=== PATIENT | female | born 1960 | race Caucasian/White ===

== ENCOUNTER → 2017-08-27 21:52 | Outpatient (CLI) | payer OTHER, SELFPAY ==
[2017-08-27 23:19] LABS: PTHIN 129.8 pg/mL (18.4-80.1); Vitamin D,25 Hydroxy 32.7 ng/mL (29.95-100.01)
[2017-08-27 23:22] LABS: ALB/GLOB Ratio 0.9 RATIO (0.9-2.4); AST(SGOT) 17 U/L (15-37); Alanine Aminotransfer ALT/SGPT 24 U/L (13-56); Albumin, Serum 3.6 g/dL (3.2-5.0); Alkaline Phosphatase 94 U/L (45-117); Anion Gap 11 (5-15); BUN 18 mg/dL (7-18); BUN/Creat Ratio 17.5 RATIO (10-20); Calcium,Total 8.5 mg/dL (8.5-10.1); Chloride 105 mmol/L (98-107); Creatinine, Serum 1.03 mg/dL (0.55-1.02); EST Glomerular Filtration Rate 59 mL/min (>60); Est Glom Filt Rate - Afr Amer 72 mL/min (>60); Free T3 3.5 pg/mL (2.18-3.98); Globulin 4.1 g/dL (2.2-4.2); Glucose 94 mg/dL (74-106); Protein, Total 7.7 g/dL (6.4-8.2); Sodium Level 142 mmol/L (136-145); T4 Free Direct 1.42 ng/dL (0.76-1.46); Thyroid Stim Hormone (TSH) 0.01 uIU/mL (0.358-3.74)
== END ==
PROVIDERS: Family Provider Family Medicine; PCP Family Medicine; Visit Provider Internal Medicine Endocrinology, Diabetes & Metabolism
DX: E03.8 Other specified hypothyroidism (principal); E21.1 Secondary hyperparathyroidism, not elsewhere classified; E55.9 Vitamin D deficiency, unspecified
CPT/HCPCS: 36415; 80053; 82306; 83970; 84439; 84443; 84481

== ENCOUNTER → 2017-09-22 17:57 | Outpatient (CLI) | payer OTHER, SELFPAY ==
[2017-09-22 19:06] LABS: Progesterone Level 0.31 ng/mL (See Comment)
[2017-09-22 19:07] LABS: Estradiol 12.8 pg/mL; T4 Free Direct 1.45 ng/dL (0.76-1.46); Thyroid Stim Hormone (TSH) 0.02 uIU/mL (0.358-3.74)
[2017-09-24 11:40] LABS: DHEA Sulfate 157.6 ug/dL (29.4-220.5)
== END ==
PROVIDERS: Family Provider Family Medicine; PCP Family Medicine; Visit Provider Specialist
DX: E03.8 Other specified hypothyroidism (principal); N95.1 Menopausal and female climacteric states; R53.81 Other malaise
CPT/HCPCS: 36415; 82627; 82670; 84144; 84403; 84439; 84443; 84481; 82626

== ENCOUNTER → 2019-08-30 08:01 | Outpatient (CLI) | payer OTHER, SELFPAY ==
[2019-05-10 08:47] VITALS: BMI 31.8
--- NOTE | 2019-08-30 08:05 | RAD_ITS ---
STUDY: X-RAY - ESOPHAGUS (BARIUM SWALLOW) WITH FLUOROSCOPY REASON FOR EXAM: Female, 59 years old. Feels like food gets stuck in throat -- x years, happens several times a month TECHNIQUE: 18 view(s) of the esophagus were obtained following swallowing of barium. FLUOROSCOPY TIME (if supplied): (0:32) minutes/seconds COMPARISON: None. FINDINGS: There is no demonstrated esophageal foreign body. Mild circumferential narrowing in the distal esophagus at the level of the gastroesophageal junction. The patient ingested a 12 mm tablet of barium. The tablet is trapped at the gastroesophageal junction. Endoscopic correlation is recommended. Normal visualized aortic arch and descending thoracic aorta. Normal visualized pulmonary parenchyma. Normal visualized osseous structures of the thorax. RAD/Esophagus Single Contrast IMPRESSION: Mild degree of circumferential narrowing in the distal esophagus at the gastroesophageal junction with trapping of the 12 mm tablet of barium. Endoscopic correlation is recommended. Electronically Signed: Heriberto Cox, at 9:21 EDT , Service support ,
== END ==
PROVIDERS: PCP Family Medicine; Referring Provider Otolaryngology; Visit Provider Otolaryngology
DX: R13.10 Dysphagia, unspecified (principal)
CPT/HCPCS: 74220

== ENCOUNTER → 2020-02-17 18:32 | Outpatient (CLI) | payer OTHER, SELFPAY ==
[2019-05-10 08:47] VITALS: BMI 31.8
--- NOTE | 2020-02-17 18:39 | US_ITS ---
STUDY: ULTRASOUND OF THE FEMALE PELVIS - COMPLETE REASON FOR EXAM: Female, 59 years old. LIGHT SPOTTING AND CRAMPS LMP: The patient is postmenopausal TECHNIQUE: Transabdominal and Transvaginal TECHNICAL QUALITY: Adequate. COMPARISON: None. FINDINGS: The uterus is anteverted and is in a midline position. The uterus measures 8.4 cm x 4.5 cm x 3.7 cm. Normal uterine cervix. The endometrium is thickened and measures 6.0 mm in thickness, and is hyperechoic. There is no demonstrated endometrial mass. 3 small uterine fibroids are seen. The largest measures 1.2 cm x 1.7 cm x 0.5 cm. I.U.D. - The patient does not have an I.U.D. The right ovary is non-visualized. The left ovary is non-visualized. There is no fluid in the cul-de-sac. The pre void volume of the bladder was 169 ml. Polycystic ovary disease: No. US/Pelvic (Non ) IMPRESSION: Thickening of the endometrium measuring 6 mm. 3. Small uterine fibroids. Electronically Signed: Heriberto Cox, at 12:38 EDT , Service support ,
--- NOTE | 2020-02-17 18:56 | US_ITS ---
STUDY: ULTRASOUND OF THE FEMALE PELVIS - COMPLETE REASON FOR EXAM: Female, 59 years old. LIGHT SPOTTING AND CRAMPS LMP: The patient is postmenopausal TECHNIQUE: Transabdominal and Transvaginal TECHNICAL QUALITY: Adequate. COMPARISON: None. FINDINGS: The uterus is anteverted and is in a midline position. The uterus measures 8.4 cm x 4.5 cm x 3.7 cm. Normal uterine cervix. The endometrium is thickened and measures 6.0 mm in thickness, and is hyperechoic. There is no demonstrated endometrial mass. 3 small uterine fibroids are seen. The largest measures 1.2 cm x 1.7 cm x 0.5 cm. I.U.D. - The patient does not have an I.U.D. The right ovary is non-visualized. The left ovary is non-visualized. There is no fluid in the cul-de-sac. The pre void volume of the bladder was 169 ml. Polycystic ovary disease: No. US/Transvaginal Non- IMPRESSION: Thickening of the endometrium measuring 6 mm. 3. Small uterine fibroids. Electronically Signed: Heriberto Cox, at 12:38 EDT , Service support ,
== END ==
PROVIDERS: PCP Family Medicine; Referring Provider Family Medicine; Visit Provider Family Medicine
DX: R10.2 Pelvic and perineal pain (principal)
CPT/HCPCS: 76830; 76856

== ENCOUNTER → 2020-03-08 07:13 | Outpatient (CLI) | payer OTHER, SELFPAY ==
[2019-05-10 08:47] VITALS: BMI 31.8
--- NOTE | 2020-03-07 17:15 | BI_ITS ---
MAMMOGRAPHY - BILATERAL SCREENING REASON FOR EXAM: Female, 59 years old. Routine annual screening examination. PERTINENT HISTORY: Aunt with breast cancer. TECHNIQUE: Digital bilateral breast jesse (3D mammographic acquisition) in the CC and MLO projections. 2-D mediolateral oblique (MLO) and craniocaudad (CC) views of both breasts were obtained. CAD: Full Field Digital Mammography with Computer Added Detection was performed. COMPARISON: Comparison is made with prior study dated 07/06/2016 and 06/08/2015. FINDINGS: Breast Composition: There are scattered areas of fibroglandular density. There are no dominant masses or suspicious calcifications. Stable asymmetry of the breast parenchyma in the outer lateral quadrant of the left breast. No other significant abnormalities are identified. There has been no significant change since the prior study. BI/SCREEN MAMM (CAD) W/JESSE BILAT IMPRESSION: Stable bilateral screening mammogram. Yearly follow-up mammogram recommended. (A) ASSESSMENT CATEGORY: BIRADS Category 2: Benign. A letter regarding these results will be sent to the patient by the facility within 30 days. Approximately 10% of breast cancers are not detected by mammography. A normal mammogram should not delay biopsy of a clinically suspicious abnormality. [id number] Electronically Signed: Heriberto Cox, at 8:33 EDT , Service support ,
== END ==
PROVIDERS: PCP Family Medicine; Referring Provider Family Medicine; Visit Provider Family Medicine
DX: Z12.31 Encounter for screening mammogram for malignant neoplasm of breast (principal)
CPT/HCPCS: 77063; 77067

== ENCOUNTER 2020-11-15 21:14 | Emergency (ER) | payer BC, SELFPAY ==
[2019-05-10 08:47] VITALS: BMI 31.8
[2020-11-15 21:15] VITALS: BP 129/79; PULSE 51; RESP 18; TEMP 35.1; O2SAT 100; BMI 27.9
--- NOTE | 2020-11-15 21:25 | EKG12_ITS ---
Test Reason : ABD PAIN Blood Pressure : / mmHG Vent. Rate : 051 BPM Atrial Rate : 051 BPM P-R Int : 156 ms QRS Dur : 074 ms QT Int : 440 ms P-R-T Axes : 036 042 044 degrees QTc Int : 405 ms Sinus bradycardia Otherwise normal ECG Confirmed by REGINE SMITH, CLARIBEL ([id number]), associate editor KEYSHAWN SHIN ([id number]) on 11/17/2020 8:39:25 AM Referred By: PEGGY Confirmed By:CLARIBEL WEINER MD
--- NOTE | 2020-11-15 21:26 | EX.ED.DYSGE1 ---
HPI History of Present Illness Chief Complaint: Abd Pain Narrative Narrative: Patient started having diffuse abdominal pain she tells me all around her abdomen and it through the back for about an hour prior to arrival upon arrival to the ED it had subsided. She had some nausea but this improved. She now tells me she has no abdominal pain she has no nausea she has no vomiting she had no diarrhea or constipation she is denying chest pain or shortness of breath. No fever or chills. She was sweaty when this episode happened. [facility] Medical History Goiter Thyroid disease Home Medications BIEST SC 05/10/19 [History Last Taken Unknown] IDDORAL IODINE 12.5 mg SUBLINGUAL DAILY 05/10/19 [History Last Taken Unknown] levothyroxine 100 mcg tablet 100 mcg PO DAILY #90 tab 05/10/19 [Rx Last Taken Unknown] jggvrulueoqc-Zg-pwwj-minerals tab PO .TWICE DAILY tab 05/10/19 [History Last Taken Unknown] progesterone micronized 100 mg capsule 100 mg PO ONCE cap 05/10/19 [History Last Taken Unknown] testosterone enanthate 50 mg/0.5 mL subcutaneous auto-injector 20 mg SC .COMPLEX ml 05/10/19 [History Last Taken Unknown] Allergy/AdvReac Type Severity Reaction Status Date / Time No Known Allergies Allergy Verified 11/15/20 21:16 Family History Mother Arthritis Father Cancer Other OSTEOPEROSIS Social History (Updated 05/11/19 @ 08:[address] Phu Le MD) Smoking Status: Never smoker alcohol intake: never substance use type: does not use what type of physical activity do you participate in: walking ROS ROS ED ROS Narrative Past medical history: Reviewed, includes hypothyroidism and other hormonal related disorders. Medications: Reviewed Social history: Noncontributory Review of systems: All systems negative except as indicated General: No fever Eyes: No visual changes ENT: No upper airway congestion, normal voice Neck: No neck pain Cardiovascular: No chest pain Respiratory: No shortness of breath or cough Gastrointestinal: Abdominal pain as in HPI Genitourinary: No dysuria Musculoskeletal: Denies myalgias no difficulty with ambulation Skin: No rash Neurological: No memory loss, confusion or any focal weakness Psych: No recent behavioral changes Hematologic: No easy bleeding or easy bruising EXAM Physical Exam Narrative Exam Narrative: Physical exam General: Well nourished, Well developed, No Acute Distress Head: Normocephalic, Atraumatic Eyes: Conjunctiva not pale ENT: Moist mucous membranes Neck: Supple, Nontender, No lymphadenopathy Cardiovascular: Regular rate, Regular rhythm Respiratory: No distress, CTA bilaterally Abdomen: Soft, Nontender, Nondistended Back: Nontender, Normal Inspection. Negative for: CVA tenderness Extremities: Nontender, No edema Skin: Normal color, No rash Neurological: Alert, Normal Strength, Normal Sensation Psychological: Normal affect Const Vital Signs: 11/15/20 21:15 Temperature 95.2 F L Temperature Source Temporal Pulse Rate 51 L Respiratory Rate 18 Blood Pressure 129/79 H Blood Pressure Mean 95 Pulse Ox 100 Oxygen Delivery Method Room Air MDM MDM MDM Narrative Medical decision making narrative: Patient has a normal work-up she appears well she is completely asymptomatic. She will be discharged in stable condition Lab Data Labs: Laboratory Results - last 24 hr 11/15/20 11/15/20 21:20 21:20 WBC 10.2 RBC 4.54 Hgb 13.8 Hct 41.6 MCV 91.6 MCH 30.4 MCHC 33.2 RDW Std Deviation 43.4 RDW Coeff of Shilpi 12.9 Plt Count 268 MPV 10.4 Immature Gran % (Auto) 0.300 Neut % (Auto) 51.7 Lymph % (Auto) 33.4 Isabella % (Auto) 12.3 H Eos % (Auto) 1.9 Baso % (Auto) 0.4 Absolute Neuts (auto) 5.3 Absolute Lymphs (auto) 3.40 Nucleated RBC % 0 Sodium 139 Potassium 3.7 Chloride 103 Carbon Dioxide 27.0 Anion Gap 9 BUN 23 H Creatinine 1.11 H Estim Creat Clear Calc 41.69 Est GFR (MDRD) Af Amer 65 Est GFR (MDRD) Non-Af 54 L BUN/Creatinine Ratio 20.7 H Glucose 111 H Calcium 9.2 Total Bilirubin 0.20 AST 54 H ALT 32 Alkaline Phosphatase 85 Troponin I < 0.015 Total Protein 7.7 Albumin 3.8 Globulin 3.9 Albumin/Globulin Ratio 1.0 Lipase 173 Discharge Plan Triage Chief Complaint: Abd Pain ED Provider: Austin Farris Dx/Rx/DC Orders Prescriptions: No Action progesterone micronized 100 mg capsule 100 mg PO ONCE RF: 0 testosterone enanthate 50 mg/0.5 mL auto-injector 20 mg SC .COMPLEX RF: 0 BIEST auto-injector SC RF: 0 IDDORAL IODINE capsule 12.5 mg SUBLINGUAL DAILY RF: 0 Multiple Vitamin, Womens Tablet PO .TWICE DAILY RF: 0 levothyroxine 100 mcg tablet 100 mcg PO DAILY Qty: 90 RF: 3 Primary Care Provider: Richelle Escalante
--- NOTE | 2020-11-15 21:28 | ED.RN ---
NO OLD EKGS IN MUSE
[2020-11-15 21:40] LABS: Absolute Neutrophil Count 5.3 X10^3/uL (2.0-7.7); Basophil# 0.04 X10^3/uL; Basophil% 0.4 % (0-1); Eosinophil# 0.19 X10^3/uL; Eosinophils% 1.9 % (0-5); Hematocrit 41.6 % (37-47); Hemoglobin 13.8 g/dL (12.0-15.0); Lymphocyte % 33.4 % (19-41); Mean Corp Hgb Conc 33.2 g/dL (32-36); Mean Corpuscular Hgb 30.4 pg (27.0-32.0); Mean Corpuscular Volume 91.6 fL (81-99); Mean Platelet Vol. 10.4 fl (6.2-12.0); Monocyte# 1.25 X10^3/uL; Monocyte% 12.3 % (0-10); NRBC Flagged by Analyzer 0 % (0-5); Neutrophil # 5.26 X10^3/uL (2.7-7.7); Neutrophil % 51.7 % (47-70); Platelet Count 268 K/mm3 (150-450); RBC Distribution Width CV 12.9 % (11.6-14.6); RBC Distribution Width SD 43.4 fl (35.1-43.9); Red Blood Count 4.54 M/mm3 (4.2-5.4); White Blood Count 10.2 K/mm3 (4.4-11.0)
[2020-11-15 22:11] LABS: AST(SGOT) 54 U/L (15-37); Alanine Aminotransfer ALT/SGPT 32 U/L (13-56); Albumin, Serum 3.8 g/dL (3.2-5.0); Alkaline Phosphatase 85 U/L (45-117); Anion Gap 9 (5-15); BUN 23 mg/dL (7-18); BUN/Creat Ratio 20.7 RATIO (10-20); Calcium,Total 9.2 mg/dL (8.5-10.1); Chloride 103 mmol/L (98-107); Creatinine, Serum 1.11 mg/dL (0.55-1.02); EST Glomerular Filtration Rate 54 mL/min (>60); Est Glom Filt Rate - Afr Amer 65 mL/min (>60); Estimated Creatinine Clearance 41.69 ml/min; Globulin 3.9 g/dL (2.2-4.2); Glucose 111 mg/dL (74-106); Lipase 173 U/L (73-393); Potassium 3.7 mmol/L (3.5-5.1); Protein, Total 7.7 g/dL (6.4-8.2); Sodium Level 139 mmol/L (136-145)
[2020-11-15 22:57] VITALS: PULSE 69; RESP 18; O2SAT 96
== END 2020-11-15 23:01 | disposition home or self-care (01) ==
PROVIDERS: Emergency Provider Emergency Medicine; PCP Family Medicine
DX: R10.84 Generalized abdominal pain (principal); E03.9 Hypothyroidism, unspecified; Z79.899 Other long term (current) drug therapy
CPT/HCPCS: 80053; 83690; 84484; 85025; 93005; 99282

== ENCOUNTER 2021-04-30 07:51 | Day surgery (SDC) | payer BC, SELFPAY ==
[2021-04-30] VITALS (7 sets, daily range): BP systolic 119–136; BP diastolic 67–99; PULSE 61–79; RESP 16; TEMP 36.2–36.6; O2SAT 98–100; BMI 27.5
--- NOTE | 2021-04-30 | ESO_PTH ---
PATIENT: GUSTAVO SOLORZANO LOC: [facility] U#:[id number] AGE/SX: 60/F ROOM: RE04/30/[address]: Dr. Brian Estrada DO : 1960 BED: DIS: 04/30/2021 SPEC #: [id number] RECD: 04/30/21 12:37 STATUS: JUSTO RADHA #: [id number] OMER: 04/30/21 00:[address]: Brian Estrada DEPT: SURGICAL PATHOLOGY RECD BY: Lane Rhodes ENTERED: 04/30/21 12:38 SP TYPE: ELIO CHOW DR: Dr. Richelle Escalante DO Tissues: A - Esophagus, NOS B - Gastric mucous membrane Procedures: Special Stain Group II Surgery Specimen Level IV Alcian Blue/PAS (control) HEADER OPERATION: Colonoscopy PRE-OP DIAGNOSIS: Screening, dysphagia TISSUE SUBMITTED: A ? Distal esophagus biopsy, B ? Pancreatic rest biopsy MICROSCOPIC DIAGNOSIS A. Distal esophagus, biopsy: Fragments of gastroesophageal mucosa with moderate chronic inflammation. Intestinal metaplasia (goblet cell metaplasia) not identified. See comment. B. Pancreatic rest biopsy: Mild gastritis. Changes consistent with pancreatic rest are not identified. See microscopic description and comment. SJ:ana 05/01/2021 COMMENT A. Alcian blue/PAS stain with matched control is used in the evaluation of the specimen. B. The results of immunohistochemistry for Helicobacter pylori will be reported separately ([id number]). Case has been reviewed in consultation with Dr. Leahy who concurs with the above diagnosis. IDC:AM MICROSCOPIC DESCRIPTION Slides are reviewed. B. The specimen shows fragments of gastric mucosa with chronic inflammatory cell infiltrates in the lamina propria consisting of lymphocytes and plasma cells, consistent with mild chronic gastritis. GROSS DESCRIPTION A - Received in fixative is one container labeled with the patient's name and designated distal esophagus biopsy. The specimen consists of multiple irregular fragments of light lombardi soft tissue that in aggregate measure 1.5 x 0.5 x 0.1 cm. The specimen is totally submitted in one cassette. B - Received in fixative is one container labeled with the patient's name and designated pancreatic rest biopsy. The specimen consists of multiple irregular fragments of light lombardi soft tissue that in aggregate measure 1 x 0.3 x 0.1 cm. The specimen is totally submitted in one cassette. / LIZ:ana 04/30/21 TC:3 CPT: 12373 x2, 52779
--- NOTE | 2021-04-30 | IMM_PTH ---
PATIENT: GUSTAVO SOLORZANO LOC: [facility] U#:[id number] AGE/SX: 60/F ROOM: RE04/30/[address]: Dr. Brian Estrada DO : 1960 BED: DIS: 04/30/2021 SPEC #: [id number] RECD: 05/01/21 14:42 STATUS: JUSTO REAshley #: [id number] OMER: 04/30/21 00:[address]: Brian Estrada DEPT: IMMUNOHISTOCHEMISTRY RECD BY: Cordelia Lamar ENTERED: 05/01/21 14:43 SP TYPE: IMMUNO OTHR DR: Dr. Richelle Escalante DO Tissues: B - Pancreas, NOS Procedures: H Pylori (initial) PHYSICIAN & INSTITUTION [place] [id number] SPECIMEN INFORMATION: Tissue Source: B ? Pancreatic rest biopsy Clinical Info: Screening, dysphagia Specimen Number: [id number] CPT code: 94653 METHODOLOGY: Deparaffinized sections of prefer/formalin-fixed tissue or PAP/DQ stained slides are incubated with monoclonal/polyclonal antibodies/oligonucleotide probes. Localization is made via biotin free immunoperoxidase method. Appropriate controls are performed and reacted as expected. Results on target cell population are indicated in the following table: RESULTS: ANTIBODY / CLONE RESULT Block B H Pylori (polyclonal) negative These tests were developed and their performance characteristics determined by [facility]. They may not have been cleared or approved by the U.S. Food and Drug Administration. The FDA has determined that such clearance or approval is not necessary. The above immunohistochemical/dualISH markers are ordered and reviewed by the Pathologist. INTERPRETATION: B. Pancreatic rest biopsy: Fragments of gastric mucosa, negative for Helicobacter pylori organisms. SJ:dora 05/02/21
[2021-04-30] MEDS: Lactated Ringers 1,000 ML 15 ML IV (08:00)
--- NOTE | 2021-04-30 08:43 | PCM.HP.BLA ---
History and Physical Date of Admission: 04/30/21 Chief Complaint: Hypothyroidism Details: GUSTAVO SOLORZANO, is a 60 F who presents to the office today for Difficulty with swallowing onset 2-3 years prior. [facility] ED presentation did swallow test. Eats a very soft diet. my tongue is fat. Saw Dr. Mckeon previously who did EGD at onset and was supposed to do dilation but is unsure if it was done because she did not have improvement following this. Reported a hiatal hernia. Also has difficulty with chronic constipation goes about once a year. Last colonoscopy at age 52. Swallow study performed 2020 Mild degree of circumferential narrowing in the distal esophagus at the gastroesophageal junction with trapping of the 12 mm tablet of barium. Endoscopic correlation is recommended ROS ENT ENT: Positive for difficulty swallowing Gastro GI: Positive for change in bowel habits and difficulty swallowing Exam Const General: cooperative and comfortable Nutritional Appearance: average body habitus and well nourished HENMT Head: normal to inspection Ears: hearing grossly normal bilaterally Nose: external nose normal Face and sinus: normal facial exam Mouth: oral mucosae normal Throat: posterior oropharynx normal Eyes General: appearance normal, both eyes and all related structures Neck Neck: normal visual inspection Chest Chest palpation & inspection: normal inspection of the chest and normal palpation of entire chest wall Resp Effort & Inspection: normal respiratory effort Auscultation: Bilateral: Clear to Auscultation Cardio Palpation: normal PMI Rate: regular rate Rhythm: regular rhythm GI Inspection: normal to inspection Auscultation: normal bowel sounds Percussion: normal to percussion Palpation: no hepatosplenomegaly Skin General: no rashes or lesions noted Neuro General: patient alert Extrem General: normal to inspection Psych Affect: normal affect Quality Reporting Tobacco Screening ([facility] 138) Smoking Status: Never smoker Assessment and Plan Assessment and Plan (1) Encounter for screening colonoscopy: Status: Acute Orders: Orders: Colonoscopy 04/30/21 EGD 04/30/21 Plan - Dr. Torres Friend, DO: Patient will undergo screening colonoscopy. She has not had a colonoscopy for 10 years. She was explained alternatives risk, benefits including not withstanding bleeding, infection, sepsis, perforation, need for emergent surgery and . She will have an ASA of 1. (2) Dysphagia: Status: Acute Orders: Orders: Colonoscopy 04/30/21 EGD 04/30/21 Plan - Dr. Brian Estrada, DO: We will work her up for the cause of her esophageal dysphagia including achalasia, eosinophilic esophagitis, sliding hiatal hernia, ineffective esophageal dysmotility disorder or esophageal web. Plan Details Other Medications: New: bisacodyl take as directed for bowel prep 5 mg PO ONCE 4 tabs 0RF polyethylene glycol 3350 (Miralax) take as directed for bowel prep 17 grams PO DAILY 238 grams 0RF I have re-examined the patient. There are no clinical changes since date of exam.
--- NOTE | 2021-04-30 09:16 | OP.EGD_ITS ---
Patient Name: Imelda García Procedure Date: 04/30/2021 8:49 AM Date of : 1960 Age: 60 Procedure: Upper GI endoscopy Indications: Heartburn Providers: Brian Estrada DO Medicines: See the Anesthesia note for documentation of the administered medications Patient Profile: This is a 60 year old female. Refer to note in patient chart for documentation of history and physical. Patient has symptoms of chronic dysphagia and dysphagia with solids. The symptoms first began January. She is status post EGD for biopsy three years ago. Complications: No immediate complications. Procedure: Pre-Anesthesia Assessment: - Prior to the procedure, a History and Physical was performed, and patient medications and allergies were reviewed. The risks and benefits of the procedure and the sedation options and risks were discussed with the patient. All questions were answered and informed consent was obtained. Patient identification and proposed procedure were verified by the physician in the pre-procedure area. Mental Status Examination: alert and oriented. Airway Examination: normal oropharyngeal airway and neck mobility. Respiratory Examination: clear to auscultation. CV Examination: normal. Prophylactic Antibiotics: The patient does not require prophylactic antibiotics. Prior Anticoagulants: The patient has taken no previous anticoagulant or antiplatelet agents. After reviewing the risks and benefits, the patient was deemed in satisfactory condition to undergo the procedure. The anesthesia plan was to use moderate sedation / analgesia (conscious sedation). Immediately prior to administration of medications, the patient was re-assessed for adequacy to receive sedatives. The heart rate, respiratory rate, oxygen saturations, blood pressure, adequacy of pulmonary ventilation, and response to care were monitored throughout the procedure. The physical status of the patient was re-assessed after the procedure. After obtaining informed consent, the endoscope was passed under direct vision. Throughout the procedure, the patient's blood pressure, pulse, and oxygen saturations were monitored continuously. The Endoscope was introduced through the mouth, and advanced to the second part of duodenum. The upper GI endoscopy was accomplished without difficulty. The patient tolerated the procedure well. Moderate Sedation: Moderate (conscious) sedation was administered by the endoscopy nurse and supervised by the endoscopist. The patient's oxygen saturation, heart rate, blood pressure and response to care were monitored. Total physician intraservice time was 15 minutes. Scope In: 9:01:06 AM Scope Out: 9:11:00 AM Total Procedure Duration Time 0 hours 9 minutes 54 seconds Findings: A moderate Schatzki ring was found in the upper third of the esophagus and in the lower third of the esophagus. A guidewire was placed and the scope was withdrawn. Dilation was performed with a Savary dilator with no resistance at 60 Fr. LA Grade A (one or more mucosal breaks less than 5 mm, not extending between tops of 2 mucosal folds) esophagitis with no bleeding was found 34 to 35 cm from the incisors. Biopsies were taken with a cold forceps for histology. Verification of patient identification for the specimen was done. Estimated blood loss was minimal. A single umbilicated, submucosal lesion measuring 10 mm in diameter was found in the gastric antrum. Biopsies were taken with a cold forceps for histology. Verification of patient identification for the specimen was done. Estimated blood loss was minimal. The second portion of the duodenum was normal. Impression: - Moderate Schatzki ring. Dilated. - LA Grade A reflux esophagitis. Rule out Haskins's esophagus. Biopsied. - A single lesion diagnostic of aberrant pancreas was found in the stomach. Biopsied. - Normal second portion of the duodenum. Recommendation: - Discharge patient to home. - Full liquid diet today. - Continue present medications. - Await pathology results. - Repeat upper endoscopy in 1 year for surveillance based on pathology results. - Return to GI office in 2 weeks. Procedure Code(s): --- Professional --- 09771, 59, Esophagogastroduodenoscopy, flexible, transoral; with insertion of guide wire followed by passage of dilator(s) through esophagus over guide wire [id number], 59, Esophagogastroduodenoscopy, flexible, transoral; with biopsy, single or multiple G0500, Moderate sedation services provided by the same physician or other qualified health senior care provider performing a gastrointestinal endoscopic service that sedation supports, requiring the presence of an independent trained observer to assist in the monitoring of the patient's level of consciousness and physiological status; initial 15 minutes of intra-service time; patient age 5 years or older (additional time may be reported with 03765, as appropriate) Diagnosis Code(s): --- Professional --- K22.2, Esophageal obstruction K21.0, Gastro-esophageal reflux disease with esophagitis Q45.3, Other congenital malformations of pancreas and pancreatic duct R12, Heartburn CPT copyright 2017 [employer] [employer]. All rights reserved. The codes documented in this report are preliminary and upon greenhouse superintendent review may be revised to meet current compliance requirements. Brian Estrada DO 04/30/2021 9:16:07 AM This report has been signed electronically. Number of Addenda: 1 Note Initiated On: 04/30/2021 8:49 AM Addendum Number: 1 Addendum Date: 02/08/2022 6:31:36 AM MAC was used instead of moderate sedation for this patient. Brian Estrada DO 02/08/2022 6:31:43 AM This report has been signed electronically.
--- NOTE | 2021-04-30 09:34 | OP.COLON_ITS ---
Patient Name: Imelda García Procedure Date: 04/30/2021 9:13 AM Date of : 1960 Age: 60 Procedure: Colonoscopy Indications: Screening for colorectal malignant neoplasm Providers: Brian Estrada DO Medicines: See the Anesthesia note for documentation of the administered medications Patient Profile: This is a 60 year old female. Refer to note in patient chart for documentation of history and physical. Patient has symptoms of chronic dysphagia and dysphagia with solids. The symptoms first began January. She is status post EGD for biopsy three years ago. She is status post colonoscopy (normal) within the past several years. Last Colonoscopy: several years ago. Complications: No immediate complications. Procedure: Pre-Anesthesia Assessment: - Prior to the procedure, a History and Physical was performed, and patient medications and allergies were reviewed. The risks and benefits of the procedure and the sedation options and risks were discussed with the patient. All questions were answered and informed consent was obtained. Patient identification and proposed procedure were verified by the physician in the pre-procedure area. Mental Status Examination: alert and oriented. Airway Examination: normal oropharyngeal airway and neck mobility. Respiratory Examination: clear to auscultation. CV Examination: normal. Prophylactic Antibiotics: The patient does not require prophylactic antibiotics. Prior Anticoagulants: The patient has taken no previous anticoagulant or antiplatelet agents. After reviewing the risks and benefits, the patient was deemed in satisfactory condition to undergo the procedure. The anesthesia plan was to use moderate sedation / analgesia (conscious sedation). Immediately prior to administration of medications, the patient was re-assessed for adequacy to receive sedatives. The heart rate, respiratory rate, oxygen saturations, blood pressure, adequacy of pulmonary ventilation, and response to care were monitored throughout the procedure. The physical status of the patient was re-assessed after the procedure. After I obtained informed consent, the scope was passed under direct vision. Throughout the procedure, the patient's blood pressure, pulse, and oxygen saturations were monitored continuously. The Colonoscope was introduced through the anus and advanced to the terminal ileum, with identification of the appendiceal orifice and IC valve. The colonoscopy was performed without difficulty. The patient tolerated the procedure well. The quality of the bowel preparation was good. Moderate Sedation: Moderate (conscious) sedation was administered by the endoscopy nurse and supervised by the endoscopist. The patient's oxygen saturation, heart rate, blood pressure and response to care were monitored. Total physician intraservice time was 15 minutes. Moderate (conscious) sedation was administered by the endoscopy nurse and supervised by the endoscopist. The patient's oxygen saturation, heart rate, blood pressure and response to care were monitored. Total physician intraservice time was 15 minutes. Scope In: 9:18:04 AM Scope Withdrawal Time 0 hours 7 minutes 15 seconds Scope Out: 9:28:36 AM Total Procedure Duration Time 0 hours 10 minutes 32 seconds Findings: The perianal and digital rectal examinations were normal. A few small and large-mouthed diverticula were found in the sigmoid colon and descending colon. There was no evidence of diverticular bleeding. Impression: - Diverticulosis in the sigmoid colon and in the descending colon. There was no evidence of diverticular bleeding. - No specimens collected. Recommendation: - Discharge patient to home. - Full liquid diet today. - Continue present medications. - Await pathology results. - Repeat colonoscopy in 10 years for surveillance. - Return to GI office in 2 weeks. Procedure Code(s): --- Professional --- 35003, Colonoscopy, flexible; diagnostic, including collection of specimen(s) by brushing or washing, when performed (separate procedure) G0500, Moderate sedation services provided by the same physician or other qualified health career center director performing a gastrointestinal endoscopic service that sedation supports, requiring the presence of an independent trained observer to assist in the monitoring of the patient's level of consciousness and physiological status; initial 15 minutes of intra-service time; patient age 5 years or older (additional time may be reported with 14433, as appropriate) G0500, Moderate sedation services provided by the same physician or other qualified health career center director performing a gastrointestinal endoscopic service that sedation supports, requiring the presence of an independent trained observer to assist in the monitoring of the patient's level of consciousness and physiological status; initial 15 minutes of intra-service time; patient age 5 years or older (additional time may be reported with 68245, as appropriate) CPT copyright 2017 [employer]. All rights reserved. The codes documented in this report are preliminary and upon ranch manager review may be revised to meet current compliance requirements. Brian Estrada DO 04/30/2021 9:34:21 AM This report has been signed electronically. Number of Addenda: 1 Note Initiated On: 04/30/2021 9:13 AM Addendum Number: 1 Addendum Date: 02/08/2022 6:31:54 AM MAC was used instead of moderate sedation for this patient. Brian Estrada DO 02/08/2022 6:32:00 AM This report has been signed electronically.
== END 2021-04-30 10:45 ==
LOC: EN 07:52 → AC 07:57
PROVIDERS: PCP Family Medicine; Referring Provider Family Medicine; Visit Provider Internal Medicine Gastroenterology
PROC: 0DJD8ZZ Inspection of Lower Intestinal Tract, Via Natural or Artificial Opening Endoscopic (ICD-10-PCS; CPT 45378; principal; 2021-04-30 08:40)
DX: K22.2 Esophageal obstruction (principal); K57.30 Diverticulosis of large intestine without perforation or abscess without bleeding; K21.00 Gastro-esophageal reflux disease with esophagitis, without bleeding; K29.70 Gastritis, unspecified, without bleeding; Q45.3 Other congenital malformations of pancreas and pancreatic duct; E03.9 Hypothyroidism, unspecified; K44.9 Diaphragmatic hernia without obstruction or gangrene; K59.09 Other constipation; Z79.899 Other long term (current) drug therapy
CPT/HCPCS: 43239; 43248; 45378; 87426; 88305; 88313; 88342; J7120; J2405

== ENCOUNTER 2021-08-02 09:08 | Outpatient (CLI) | payer BC, SELFPAY | END 2021-08-02 23:59 | disposition home or self-care (01) | LOC: LABSPEC 08-03 09:09 | PROVIDERS: PCP Family Medicine; Visit Provider Obstetrics & Gynecology | DX: Z12.4 Encounter for screening for malignant neoplasm of cervix (principal) ==

== ENCOUNTER 2021-08-15 07:59 | Outpatient (CLI) | payer BC, SELFPAY ==
[2021-08-06 13:23] LABS: HPV APTIMA, High Risk Negative (Negative)
--- NOTE | 2021-08-15 08:01 | BI_ITS ---
MAMMOGRAPHY - BILATERAL SCREENING REASON FOR EXAM: Female, 61 years old. Routine annual screening examination. PERTINENT HISTORY: Aunt with breast cancer. TECHNIQUE: Digital bilateral breast jesse (3D mammographic acquisition) in the CC and MLO projections. 2-D mediolateral oblique (MLO) and craniocaudad (CC) views of both breasts were obtained. CAD: Full Field Digital Mammography with Computer Added Detection was performed. COMPARISON: Comparison is made with prior study 03/07/2020 and 07/04/2016. FINDINGS: Breast Composition: There are scattered areas of fibroglandular density. There are no dominant masses or suspicious calcifications. Stable mild asymmetry of breast tissue were more breast tissue seen in the upper outer quadrant of the left breast as compared to the right side No other significant abnormalities are identified. There has been no significant change since the prior study. BI/SCRN MAMM (CAD)W/JESSE BILAT IMPRESSION: Stable bilateral screening mammogram. Yearly follow-up mammogram recommended. (A) ASSESSMENT CATEGORY: BIRADS Category 2: Benign. A letter regarding these results will be sent to the patient by the facility within 30 days. Approximately 10% of breast cancers are not detected by mammography. A normal mammogram should not delay biopsy of a clinically suspicious abnormality. [id number] Electronically Signed: Heriberto Cox MD at 9:17 EST ,
== END 2021-08-15 23:59 | disposition home or self-care (01) ==
LOC: OPBI 08:00
PROVIDERS: PCP Family Medicine; Visit Provider Obstetrics & Gynecology
DX: Z12.31 Encounter for screening mammogram for malignant neoplasm of breast (principal)
CPT/HCPCS: 77063; 77067; 87624; 88175; G0145

== ENCOUNTER → 2022-04-09 | Outpatient (CLI) | payer BC, SELFPAY ==
[2022-04-09 09:27] LABS: Hemoglobin A1c 5.7 % (3.8-5.6)
[2022-04-09 09:31] LABS: Cholesterol 300 mg/dL (200); Free T3 2.7 pg/mL (2.18-3.98); High Density Lipoprotein 65 mg/dL; T4 Free Direct 1.22 ng/dL (0.76-1.46); Triglycerides 193 mg/dL; Very Low Density Lipoprotein 39 mg/dL (5-40)
== END | disposition home or self-care (01) ==
LOC: PAVLAB 08:55
PROVIDERS: PCP Family Medicine; Referring Provider Obstetrics & Gynecology; Visit Provider Obstetrics & Gynecology
DX: Z01.419 Encounter for gynecological examination (general) (routine) without abnormal findings (principal); E07.9 Disorder of thyroid, unspecified
CPT/HCPCS: 36415; 80061; 83036; 84439; 84443; 84481

== ENCOUNTER → 2022-08-22 | Outpatient (CLI) | payer BC, SELFPAY ==
--- NOTE | 2022-08-22 08:08 | BI_ITS ---
MAMMOGRAPHY - BILATERAL SCREENING 3-D TOMOSYNTHESIS REASON FOR EXAM: Female, 62 years old. Routine screening PERTINENT HISTORY: Aunt with breast cancer.. TECHNIQUE: 2-D mammograms and 3-D Tomosynthesis of the breast (s) were performed. CAD was performed. COMPARISON: 03/07/2020 FINDINGS: The breast composition is composed of scattered fibroglandular density. Scattered benign calcifications are seen. No dense spiculated masses or suspicious microcalcifications are identified. No architectural distortion is identified. There is no skin thickening or retraction. There has been no significant change since the prior study. BI/SCRN MAMM (CAD)W/JESSE BILAT IMPRESSION: No mammographic signs of malignancy. Routine yearly mammograms recommended. ASSESSMENT CATEGORY: BIRADS Category 1: Negative. A letter regarding these results will be sent to the patient by the facility within 30 days. FOLLOW UP RECOMMENDATION: Yearly follow up mammogram recommended. (A) Approximately 10% of breast cancers are not detected by mammography. A normal mammogram should not delay biopsy of a clinically suspicious abnormality. Electronically Signed: Amarjit Holloway MD at 9:12 EDT ,
[2022-08-22 10:05] LABS: T4 Free Direct 1.36 ng/dL (0.76-1.46); T4 Total, Thyroxin 12.6 ug/dL (4.8-13.9); Thyroid Stim Hormone (TSH) 0.25 uIU/mL (0.358-3.74)
== END | disposition home or self-care (01) ==
PROVIDERS: PCP Family Medicine; Referring Provider Obstetrics & Gynecology; Visit Provider Obstetrics & Gynecology
DX: Z12.31 Encounter for screening mammogram for malignant neoplasm of breast (principal); E07.9 Disorder of thyroid, unspecified
CPT/HCPCS: 36415; 77063; 77067; 84436; 84439; 84443

== ENCOUNTER 2022-11-21 07:46 | Day surgery (SDC) | payer BC, SELFPAY ==
[2022-11-21] VITALS (7 sets, daily range): BP systolic 125–147; BP diastolic 84–96; PULSE 68–88; RESP 16–22; TEMP 36.4–37; O2SAT 2–99; BMI 29.9
[2022-11-21] MEDS: Lactated Ringers 1,000 ML 15 ML IV (08:16)
--- NOTE | 2022-11-21 09:00 | EGD_PTH ---
PATIENT: GUSTAVO SOLORZANO LOC: [facility] U#:[id number] AGE/SX: 62/F ROOM: RE11/21/[address]: Dr. Brian Estrada DO : 1960 BED: DIS: 11/21/2022 SPEC #: [id number] RECD: 11/21/22 09:41 STATUS: JUSTO RADHA #: [id number] OMER: 11/21/22 09:[address]: Brian Estrada DEPT: SURGICAL PATHOLOGY RECD BY: Guillermo Barry ENTERED: 11/21/22 11:25 SP TYPE: EGD BIOPSY OT DR: Dr. Richelle Escalante DO Tissues: Esophagus, NOS Procedures: Special Stain Group II Surgery Specimen Level IV Alcian Blue/PAS (control) HEADER OPERATION: EGD ([facility] [place]) with dilatation and biopsies PRE-OP DIAGNOSIS: Dysphagia, gastric reflux TISSUE SUBMITTED: Distal esophagus biopsy MICROSCOPIC DIAGNOSIS Distal esophagus, biopsy: Fragments of gastroesophageal mucosa with focal ulceration, chronic inflammation and changes consistent with gastroesophageal reflux disease. Intestinal metaplasia (goblet cell metaplasia) not identified. Focal changes consistent with eosinophilic esophagitis. See comment. LIZ:ana 11/22/2022 COMMENT Alcian blue/PAS stain with matched control is used in the evaluation of the specimen. Increased number of eosinophils (>20 per high power field) are noted consistent with eosinophilic esophagitis. The specimen predominantly consists of squamous mucosa. MICROSCOPIC DESCRIPTION Slides are reviewed. GROSS DESCRIPTION Received in fixative is one container labeled with the patient's name and designated distal esophagus biopsy. The specimen consists of multiple irregular fragments of light lombardi soft tissue that in aggregate measure 2.0 x 0.5 x 0.1 cm. The specimen is totally submitted in one cassette. / LIZ:ana 11/21/2022 TC:3 CPT: 09951, 09549
--- NOTE | 2022-11-21 09:07 | PCM.HP.BLA ---
History and Physical Date of Admission: 11/21/22 dysphagia Details: GUSTAVO SOLORZANO, is a 62 F who presents to the office today for recurrence of dysphagia. Previous difficulty swallowing was treated effectively with dilation of moderate Schatzki ring in 04/2021. EGD showed single pancreatic rest in stomach then. She takes pantoprazole 40 mg daily. Only has heartburn if she forgets PPI. Has chronic constipation, doesn't want to take miralax, asks about zuPoo. No abd pain. No melena or hematochezia. No nausea, vomiting. EGD and colonoscopy performed 04/30/21: EGD ? moderate Schatzki ring, dilated. LA Grade A reflux esophagitis. Single lesion diagnostic of aberrant pancreas in stomach. Biopsy - Distal esophagus moderate chronic inflammation without metaplasia. Pancreatic rest, mild gastritis. Colonoscopy ? Diverticulosis in sigmoid and descending colon. No specimens collected. ROS Const Constitutional: No fatigue ENT ENT: Positive for difficulty swallowing Gastro GI: Positive for difficulty swallowing; No abdominal pain, belching, bloating, change in bowel habits, change in stool character, coffee ground emesis, constipation, cramping, diarrhea, heartburn, feeling full early, excessive flatus, incontinent of stools, Vomiting blood/hematemesis, Blood in stool, loose stools, Black,tarry stools, nausea/dyspepsia, pain with swallowing, vomiting or other Musc Musculoskeletal: No joint pain Skin Skin: No yellowing of the eye or itchy eyes Psych Psychiatric: No anxiety and No depression Endo Endocrine: No fatigue Aller/Imm Allergy/Immunologic: No itchy eyes Michael/Lymp Hematologic/Lymphatic: No easy bleeding or easy bruising Exam Const General: cooperative, healthy appearing and comfortable Orientation: alert, awake and oriented x3 Quality Reporting Tobacco Screening ([facility] 138) Smoking Status: Never smoker Assessment and Plan Assessment and Plan (1) Dysphagia: ?Status:?Acute ?Plan: 62 yo female with dysphagia, hx schatzki ring, gerd. Get EGD. Continue pantoprazole 40 mg daily. (2) Gastric reflux: ?Status:?Chronic ?Plan: see above I have examined the patient and the H&P has been reviewed. There are no clinical changes since date of exam.
--- NOTE | 2022-11-21 09:38 | OP.EGD_ITS ---
Patient Name: Imelda García Procedure Date: 11/21/2022 9:09 AM Date of : 1960 Age: 62 Procedure: Upper GI endoscopy Indications: Dysphagia Providers: Brian Estrada DO Medicines: Monitored Anesthesia Care Patient Profile: This is a 62 year old female. Refer to note in patient chart for documentation of history and physical. Patient has symptoms of acute dysphagia. Complications: No immediate complications. Procedure: Pre-Anesthesia Assessment: - Prior to the procedure, a History and Physical was performed, and patient medications and allergies were reviewed. The patient is competent. The risks and benefits of the procedure and the sedation options and risks were discussed with the patient. All questions were answered and informed consent was obtained. Patient identification and proposed procedure were verified by the physician in the pre-procedure area. Mental Status Examination: alert but confused. Airway Examination: normal oropharyngeal airway and neck mobility. Respiratory Examination: clear to auscultation. CV Examination: normal. Prophylactic Antibiotics: The patient does not require prophylactic antibiotics. Prior Anticoagulants: The patient has taken no previous anticoagulant or antiplatelet agents. ASA Grade Assessment: II - A patient with mild systemic disease. After reviewing the risks and benefits, the patient was deemed in satisfactory condition to undergo the procedure. The anesthesia plan was to use monitored anesthesia care (MAC). Immediately prior to administration of medications, the patient was re-assessed for adequacy to receive sedatives. The heart rate, respiratory rate, oxygen saturations, blood pressure, adequacy of pulmonary ventilation, and response to care were monitored throughout the procedure. The physical status of the patient was re-assessed after the procedure. After obtaining informed consent, the endoscope was passed under direct vision. Throughout the procedure, the patient's blood pressure, pulse, and oxygen saturations were monitored continuously. The Endoscope was introduced through the mouth, and advanced to the second part of duodenum. The upper GI endoscopy was accomplished without difficulty. The patient tolerated the procedure well. Scope In: 9:18:59 AM Scope Out: 9:27:58 AM Total Procedure Duration Time 0 hours 8 minutes 59 seconds Findings: Mucosal changes including ringed esophagus, longitudinal furrows, small-caliber esophagus, white plaques and congestion (edema) were found in the middle third of the esophagus and in the lower third of the esophagus. Biopsies were taken with a cold forceps for histology. Verification of patient identification for the specimen was done. Estimated blood loss was minimal. A moderate Schatzki ring was found in the lower third of the esophagus. A guidewire was placed and the scope was withdrawn. Dilation was performed with a Savary dilator with no resistance at 60 Fr. The dilation site was examined and showed. Estimated blood loss was minimal. The entire examined stomach was normal. A non-bleeding diverticulum with a small opening and no stigmata of recent bleeding was found in the lower third of the esophagus. The in the duodenum was normal. A single smooth, umbilicated, submucosal lesion measuring 5 mm in diameter was found in the gastric antrum. Impression: - Esophageal mucosal changes consistent with eosinophilic esophagitis. Biopsied. - Moderate Schatzki ring. Dilated. - Normal stomach. - Diverticulum in the lower third of the esophagus. - Normal. - A single lesion of aberrant pancreas was found in the stomach. Recommendation: - Await pathology results. - Continue present medications. Procedure Code(s): --- Professional --- 66910, Esophagogastroduodenoscopy, flexible, transoral; with insertion of guide wire followed by passage of dilator(s) through esophagus over guide wire [id number], 59,51, Esophagogastroduodenoscopy, flexible, transoral; with biopsy, single or multiple CPT copyright 2017 [employer]. All rights reserved. The codes documented in this report are preliminary and upon shop lead review may be revised to meet current compliance requirements. Brian Estrada DO 11/21/2022 9:37:34 AM This report has been signed electronically. Number of Addenda: 0 Note Initiated On: 11/21/2022 9:09 AM
--- NOTE | 2022-11-21 09:39 | OP.CCLET_ITS ---
11/21/2022 Richelle Escalante [address] [place] [address] Re : Upper GI endoscopy procedure for Imelda García Dear Dr. Escalante This procedure was performed on November. My impressions and recommendations are as follows: Impressions : - Esophageal mucosal changes consistent with eosinophilic esophagitis. Biopsied. - Moderate Schatzki ring. Dilated. - Normal stomach. - Diverticulum in the lower third of the esophagus. - Normal. - A single lesion of aberrant pancreas was found in the stomach. Recommendations : - Await pathology results. - Continue present medications. My findings are described in the full procedure note, which is enclosed. If I can be of further assistance, please feel free to contact me at . Sincerely, Brian Estrada, 11/21/2022 9:37:34 AM This report has been signed electronically.
[2022-11-21 11:04] LABS: Erythrocyte Sedimentation Rate 19 mm/hr (0-30)
[2022-11-21 11:06] LABS: Absolute Lymphocyte Count 1.13 X10^3/uL (0.83-4.51); Absolute Neutrophil Count 5.4 X10^3/uL (2.0-7.7); Basophil# 0.05 X10^3/uL; Basophil% 0.7 % (0-1); Eosinophil# 0.06 X10^3/uL; Eosinophils% 0.9 % (0-5); Hematocrit 42.2 % (37-47); Hemoglobin 13.6 g/dL (12.0-15.0); Lymphocyte # 1.13 X10^3/ul (0.83-4.51); Lymphocyte % 16.3 % (19-41); Mean Corp Hgb Conc 32.2 g/dL (32-36); Mean Corpuscular Hgb 29.8 pg (27.0-32.0); Mean Corpuscular Volume 92.3 fL (81-99); Mean Platelet Vol. 10.9 fl (6.2-12.0); Monocyte# 0.32 X10^3/uL; Monocyte% 4.6 % (0-10); NRBC Flagged by Analyzer 0 % (0-5); Neutrophil # 5.36 X10^3/uL (2.7-7.7); Neutrophil % 77.1 % (47-70); Platelet Count 288 K/mm3 (150-450); RBC Distribution Width CV 13.2 % (11.6-14.6); RBC Distribution Width SD 44.7 fl (35.1-43.9); Red Blood Count 4.57 M/mm3 (4.2-5.4)
[2022-11-21 12:04] LABS: CRP 4.84 mg/L (0.0-3.0)
[2022-11-22 15:08] LABS: Endomysial Antibody IgA Negative (Negative); Immunoglobulin A 266 mg/dL (87-352); t-Transglutaminase IgA <2 U/mL (0-3)
[2022-11-25 14:37] LABS: Immunoglobulin A 271 mg/dL (87-352); Immunoglobulin E 5 IU/mL (6-495); Immunoglobulin G 1661 mg/dL (586-1602); Immunoglobulin M 213 mg/dL (26-217)
[2022-11-25 18:07] LABS: Beef <0.10 kU/L (Class 0); Chocolate <0.10 kU/L (Class 0); Clam <0.10 kU/L (Class 0); Codfish <0.10 kU/L (Class 0); Corn <0.10 kU/L (Class 0); Egg, White <0.10 kU/L (Class 0); Egg, Whole <0.10 kU/L (Class 0); Milk (Cow) <0.10 kU/L (Class 0); Peanut <0.10 kU/L (Class 0); Pork <0.10 kU/L (Class 0); SCALLOP <0.10 kU/L (Class 0); SESAME SEED <0.10 kU/L (Class 0); Shrimp <0.10 kU/L (Class 0); Soybean <0.10 kU/L (Class 0); Walnut, (Food) <0.10 kU/L (Class 0); Wheat <0.10 kU/L (Class 0)
== END 2022-11-21 10:30 | disposition home or self-care (01) ==
LOC: EN 07:46 → AC 07:48
PROVIDERS: PCP Family Medicine; Referring Provider Family Medicine; Visit Provider Internal Medicine Gastroenterology
PROC: 0DJ08ZZ Inspection of Upper Intestinal Tract, Via Natural or Artificial Opening Endoscopic (ICD-10-PCS; CPT 43235; principal; 2022-11-21 08:55)
DX: K22.2 Esophageal obstruction (principal); K20.0 Eosinophilic esophagitis; R13.10 Dysphagia, unspecified; K57.90 Diverticulosis of intestine, part unspecified, without perforation or abscess without bleeding; R10.9 Unspecified abdominal pain; K21.9 Gastro-esophageal reflux disease without esophagitis; Z79.899 Other long term (current) drug therapy
CPT/HCPCS: 43239; 43248; 36415; 82784; 82785; 83516; 85025; 85652; 86003; 86005; 86140; 86255; 88305; 88313; J7120; C1769; J2405

== ENCOUNTER → 2023-09-06 | Outpatient (CLI) | payer BC, SELFPAY ==
[2023-09-06 12:13] LABS: Basophil# 0.07 X10^3/uL; Eosinophil# 0.67 X10^3/uL; Eosinophils% 9.2 % (0-5); Hematocrit 39.6 % (37-47); Lymphocyte % 24.7 % (19-41); Mean Corp Hgb Conc 32.8 g/dL (32-36); Mean Corpuscular Hgb 29.9 pg (27.0-32.0); Monocyte# 0.73 X10^3/uL; NRBC Flagged by Analyzer 0 % (0-5); Neutrophil # 4.02 X10^3/uL (2.7-7.7); POSITIVE COUNT YES; RBC Distribution Width CV 13.1 % (11.6-14.6); RBC Distribution Width SD 43.8 fl (35.1-43.9); Red Blood Count 4.35 M/mm3 (4.2-5.4); White Blood Count 7.3 K/mm3 (4.4-11.0)
[2023-09-06 12:41] LABS: Homocysteine 8.2 umol/L (3.2-10.7)
[2023-09-06 12:42] LABS: ALB/GLOB Ratio 0.9 RATIO (0.9-2.4); AST(SGOT) 22 U/L (15-37); Alanine Aminotransfer ALT/SGPT 27 U/L (13-56); Albumin, Serum 3.8 g/dL (3.2-5.0); Alkaline Phosphatase 75 U/L (45-117); Anion Gap 5 (5-15); BUN 18 mg/dL (7-18); BUN/Creat Ratio 19.1 RATIO (10-20); Calcium,Total 9.1 mg/dL (8.5-10.1); Chloride 108 mmol/L (98-107); Cholesterol 257 mg/dL (200); Creatinine, Serum 0.94 mg/dL (0.55-1.02); EST Glomerular Filtration Rate 64 mL/min (>60); Est Glom Filt Rate - Afr Amer 77 mL/min (>60); Ferritin 33 ng/mL (8-252); Globulin 4.3 g/dL (2.2-4.2); Glucose 91 mg/dL (74-106); High Density Lipoprotein 68 mg/dL; Iron 70 ug/dL (50-170); Iron Binding Capacity,Total 331 ug/dL (250-450); Potassium 3.7 mmol/L (3.5-5.1); Protein, Total 8.1 g/dL (6.4-8.2); Sodium Level 138 mmol/L (136-145); Thyroid Stim Hormone (TSH) 1.73 uIU/mL (0.358-3.74); Triglycerides 100 mg/dL; Very Low Density Lipoprotein 20 mg/dL (5-40)
[2023-09-06 13:10] LABS: Platelet Estimate ADEQUATE (ADEQ)
[2023-09-06 21:55] LABS: Hemoglobin A1c 5.1 % (3.8-5.6)
[2023-09-08 09:43] LABS: Insulin 6.3 mU/L (2.6-37.6); Vitamin B12 1056 pg/mL (211-911)
== END | disposition home or self-care (01) ==
PROVIDERS: PCP Family Medicine
DX: I25.10 Atherosclerotic heart disease of native coronary artery without angina pectoris (principal); E78.5 Hyperlipidemia, unspecified; E61.1 Iron deficiency; E72.11 Homocystinuria; D52.0 Dietary folate deficiency anemia; D51.0 Vitamin B12 deficiency anemia due to intrinsic factor deficiency; E55.9 Vitamin D deficiency, unspecified; E03.9 Hypothyroidism, unspecified; G93.39 Other post infection and related fatigue syndromes
CPT/HCPCS: 36415; 80053; 80061; 82306; 82607; 82728; 82746; 83036; 83090; 83525; 83540; 83550; 84443; 85025; 86141

== ENCOUNTER 2024-06-18 05:30 | Day surgery (SDC) | payer BC, SELFPAY ==
[2024-06-18 05:49] VITALS: BP 119/81; PULSE 97; RESP 16; TEMP 36.6; O2SAT 97; BMI 29.9
--- NOTE | 2024-06-18 06:29 | PRE.ANES_ITS ---
ASA Classification* ASA Classification ASA Classification: 2 Assessment & Plan Anesthesia* Anesthesia Assessment Anesthesia Assessment: Discussed sedation and/or anesthesia options, risks, benefits, and alternatives with patient/parents/legal guardian/POA. Questions invited. The patient/parents/legal guardian/POA seems to understand and agrees to proceed with anesthesia plan. Reviewed the physical assessment, medical history, allergy history and patient home medications list prior to surgery/procedure/anesthetic and documented any changes. Performed airway and anesthesia risk assessments. Anesthesia Type Anesthesia Type: MAC History Source History Obtained from:: Patient and Chart Anesthesia Focused Assessment* Temperature: 98 F Pulse Rate: 97 Blood Pressure: 119/81 Respiratory Rate: 16 Pulse Ox: 97 Oxygen Delivery Method: Room Air Airway Assessment Mouth opens: >3 cm Mallampati Score: III Teeth Condition: Caps/Crowns (Patient has 1 crown on left lower molar. It is tight.) and Missing (Patient has 1 missing molar left lower.) Neck Range of motion (ROM): Full ROM Focused Labs Anesthesia Preop lab: CBC WBC 7.3 K/mm3 (4.4-11.0) 09/06/23 11:51 RBC 4.35 M/mm3 (4.2-5.4) 09/06/23 11:51 Hgb 13.0 g/dL (12.0-15.0) 09/06/23 11:51 Hct 39.6 % (37-47) 09/06/23 11:51 Plt Count K/mm3 (150-450) 09/06/23 11:51 CHEMISTRY Potassium 3.7 mmol/L (3.5-5.1) 09/06/23 11:51 Sodium 138 mmol/L (136-145) 09/06/23 11:51 BUN 18 mg/dL (7-18) 09/06/23 11:51 Creatinine 0.94 mg/dL (0.55-1.02) 09/06/23 11:51 Glucose 91 mg/dL (74-106) 09/06/23 11:51 TSH 1.73 uIU/mL (0.358-3.74) 09/06/23 11:51 COAG Pre-Assessment Diagnosis/Proposed Procedure Planned Operative Procedure(s): EGD Anesthesia History 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 When Was Last Pacemaker Check QUESTION #4 FULL TEXT: You/Your Family Experience fever (hyperthermia) with Anesthesia Last Oral Intake Last Oral intake: Last Oral Intake NPO since Meds taken in AM with sips of water? Meds patient instructed to take am of surgery Any additional information?: Yes NPO since: 00:00 PONV PONV - motor scooter repairer: PONV - motor scooter repairer Female Yes 06/17/24 16:02 HX of Motion Sickness No 06/17/24 16:02 HX of N/V After Surgery Yes 06/17/24 16:02 Non-Smoker Yes 06/17/24 16:02 Duration of Surgery greater No 06/17/24 16:02 than 60 minutes Number of Risk Factors 3 06/17/24 16:02 PONV Score Moderate Risk 06/17/24 16:02 Height & Weight Height & Weight: Anesthesia: Height & Weight Height 5 ft 1 in 06/18/24 05:49 Weight: 72 kg 06/18/24 05:49 Body Mass Index (BMI) 29.9 06/18/24 05:49 Respiratory Assessment Respiratory Assessment - motor scooter repairer: Respiratory Tract Infection Hx - motor scooter repairer Hx Respiratory Tract Infection No 06/17/24 16:02 STOP Sleep Apnea STOP Sleep Apnea - motor scooter repairer: STOP Sleep Apnea - motor scooter repairer Hx Hypertension Yes 06/17/24 16:02 Hx Sleep Apnea No 06/17/24 16:02 CPAP BIPAP Do you snore loudly (louder No 06/17/24 16:02 than talking or can be heard Do you often feel tired/ No 06/17/24 16:02 fatigued/ sleepy during daytime? Has anyone observed you stop No 06/17/24 16:02 breathing during sleep? STOP Results Negative 06/17/24 16:02 QUESTION #5 FULL TEXT : Do you snore loudly (louder than talking or can be heard through closed doors)? 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 Specify any problems Hx of Preganancy in last 3 No 06/17/24 16:02 Months Nurse Filling Out Transfusion VLEHBARTLETT 06/17/24 16:02 & Questions: Date: 06/17/24 06/17/24 16:02 Time: 16:06 06/17/24 16:02 Patient unable to answer at this time (ie. confused, unrespo /Reproduction History /Reproductive History - motor scooter repairer: /Reproductive Hx- motor scooter repairer Hx Now No 06/17/24 16:02 Gestational Age (in weeks): EDC: Hx Hx Para Hx Section SAB No 06/17/24 16:02 PFSH Medical History PONV (postoperative nausea and vomiting) Non-smoker Wears glasses Post-menopausal History of hiatal hernia Gastric reflux Thyroid disease Goiter Home Medications ?Medication ?Instructions ?Recorded ?Last Taken ?Type levothyroxine 100 mcg tablet 100 mcg PO DAILY #90 tabs 05/10/19 11/21/22 Rx liothyronine 5 mcg tablet 5 mcg PO BID 11/21/22 11/21/22 History Allergy/AdvReac Type Severity Reaction Status Date / Time No Known Allergies Allergy Verified 06/18/24 05:47 Family History Mother Arthritis Lung cancer Father Esophageal cancer Other OSTEOPEROSIS Surgical History History of colonoscopy History of esophagogastroduodenoscopy (EGD) Hx of tonsillectomy Social History Smoking Status: Never smoker alcohol intake: never substance use type: does not use caffeine: Yes what type of physical activity do you participate in: walking and weight training frequency: 3-4 times per week seatbelt use: always do you feel safe at home: Yes additional social history: -Karri Review of Systems (Anesthesia) ROS Narrative System reviewed and no additional complaints, except as documented.
--- NOTE | 2024-06-18 06:30 | EGD_PTH ---
PATIENT: GUSTAVO SOLORZANO LOC: [facility] U#:[id number] AGE/SX: 63/F ROOM: RE06/18/[address]: Dr. Brian Estrada DO : 1960 BED: DIS: 06/18/2024 SPEC #: [id number] RECD: 06/18/24 10:41 STATUS: JUSTO FREDAshley #: [id number] OMER: 06/18/24 06:[address]: Brian Estrada DEPT: SURGICAL PATHOLOGY RECD BY: Tameka Cole ENTERED: 06/18/24 11:45 SP TYPE: EGD BIOPSY GERALDO DR: Dr. Richelle Escalante DO Tissues: Esophagus, NOS Procedures: Special Stain Group I Surgery Specimen Level IV Alcian Blue/PAS (control) HEADER OPERATION: EGD, biopsy, APC PRE-OP DIAGNOSIS: Eosinophilic esophagitis, dysphagia TISSUE SUBMITTED: Random esophagus biopsy MICROSCOPIC DIAGNOSIS Esophagus, random biopsy: Fragments of gastroesophageal mucosa with increased number of eosinophils consistent with eosinophilic esophagitis. Focal ulceration and fibrinopurulent exudation. Moderate chronic inflammation and minimal acute inflammation. Intestinal metaplasia (goblet cell metaplasia) not identified. See comment. 06/21/2024 COMMENT Alcian blue/PAS stain with matched control is used in the evaluation of the specimen. Increased number of eosinophils (more than 20 per high power) are noted consistent with eosinophilic esophagitis. Correlation with clinical, endoscopic findings and appropriate follow up are necessary. MICROSCOPIC DESCRIPTION Slides are reviewed. GROSS DESCRIPTION Received in fixative is one container labeled with the patient's name and designated Random esophagus biopsy. The specimen consists of multiple irregular fragments of light lombardi soft tissue that in aggregate measure 1.9 x 0.5 x 0.3 cm. The specimen is totally submitted in one cassette. 06/18/2024 TC:2 CPT:95136,55761
[2024-06-18 06:32] VITALS: BP 119/81; PULSE 97; RESP 16; TEMP 36.6; O2SAT 97
--- NOTE | 2024-06-18 06:36 | PCM.HP.STD ---
HPI - General General Date of Admission: 06/18/24 Date of Service: 06/18/24 Chief Complaint: dysphagia HPI Narrative HPI Chief Complaint: dysphagia Details: GUSTAVO SOLORZANO, is a 63 F who presents to the office today for follow up. *[facility] established 04.16.21 with dysphagia for 2-3 years. Previously established with Dr. Pino who she reports performed EGD with dilation. ? EGD and colonoscopy 04.30.21 EGD moderate Schatzki ring, Savary 60F; LA Grade A esophagitis; umbilicate submucosal lesion 10mm of gastric antrum, pancreatic rest. ? Colonoscopy without visual abnormality. OV 05.18.21 with dysphagia resolution. Increased amount of pain following EGD but this has resolved. Newly reports constipation. OV 3.30.23 chronic constipation an issue with desire to use zuPoo EGD 6..23 esophageal changes consistent with EOE, >20 eosin/field; Schatzki ring, Savary 60F; esophageal diverticulum; umbilicated submucosal lesion 5mm of gastric antrum, pancreatic rest. ? Biochemical CBC, ESR, RAST, IgAM without pertinent abnormality.? CRP H4.84, IgG H1661, IgE L5 OV 2.23.24 for the last two months she has been having difficulty swallowing. Protonix continues. OV 12.20.24 pt reports continued difficulty swallowing and states that she may need her esophagus dilated again. Reports this has been helpful in the past. [facility] Medical History PONV (postoperative nausea and vomiting) Non-smoker Wears glasses Post-menopausal History of hiatal hernia Gastric reflux Thyroid disease Goiter Home Medications ?Medication ?Instructions ?Recorded ?Last Taken ?Type levothyroxine 100 mcg tablet 100 mcg PO DAILY #90 tabs 05/10/19 11/21/22 Rx liothyronine 5 mcg tablet 5 mcg PO BID 11/21/22 11/21/22 History Allergy/AdvReac Type Severity Reaction Status Date / Time No Known Allergies Allergy Verified 06/18/24 05:47 Family History Mother Arthritis Lung cancer Father Esophageal cancer Other OSTEOPEROSIS Surgical History History of colonoscopy History of esophagogastroduodenoscopy (EGD) Hx of tonsillectomy Social History Smoking Status: Never smoker alcohol intake: never substance use type: does not use caffeine: Yes what type of physical activity do you participate in: walking and weight training frequency: 3-4 times per week seatbelt use: always do you feel safe at home: Yes additional social history: -Karri ROS Constitutional Constitutional: Denies fatigue, fever(s), poor appetite, weight gain or weight loss Gastrointestinal Gastrointestinal: Denies belching, bloating, change in bowel habits, change in stool character, chewing difficulty, coffee ground emesis, constipation, cramping, diarrhea, dyspepsia, dysphagia, early satiety, excessive flatus, fecal incontinence, heartburn, hematemesis, hematochezia, hemorrhoids, loose stools, melena, nausea, odynophagia, rectal bleeding, tenesmus, vomiting or weight changes Vital Signs Vital Signs Vital Signs: 06/18/24 05:49 06/18/24 05:49 06/18/24 06:32 Temperature 98 F 98 F Temperature Source Temporal Pulse Rate 97 97 Respiratory Rate 16 16 Respiratory Pattern Normal Blood Pressure 119/81 H 119/81 H Blood Pressure Mean 93 Blood Pressure Source Monitor Blood Pressure Position Semi-Fowlers Blood Pressure Location Left Arm Pulse Ox 97 97 Oxygen Delivery Method Room Air Room Air Weight Weight: 158 lb 11.725 oz Body Mass Index (BMI) 29.9 Physical Exam Const alert, oriented x3, no apparent distress and healthy appearing General Appearance: cooperative GI normal to inspection, nondistended, normoactive bowel sounds, soft to palpation, non-tender and non-distended Percussion: normal to percussion Rectal Exam: deferred Assessment & Plan Assessment/Plan (1) Eosinophilic esophagitis: PLAN: Assessment and Plan Assessment and Plan (1) Eosinophilic esophagitis: Status: Chronic (2) Dysphagia: Status: Chronic Plan: Secondary to hiatal hernia and multiple esophageal rings. Biopsies were negative for eosinophilic esophagitis. She stopped her PPI therapy because she saw a new homeopathic doctor and her symptoms of dysphagia come back. Will perform another upper endoscopy with dilation in we will restart her back on PPI once a day today. (3) Encounter for screening colonoscopy: Status: Acute Plan: Her colonoscopy was good except for some mild diverticular disease. She was given recommendations regarding increasing fiber in her diet. Recommendation for repeat colonoscopy was 10 years due to no family history of colon cancer or colon polyps and no personal history of polyps. (4) Abdominal pain: Status: Acute Plan: Abdominal pain thought to be secondary to mild gastritis. She completed a course of Carafate therapy and is on PPI therapy twice a day.
--- NOTE | 2024-06-18 07:09 | OP.EGD_ITS ---
Patient Name: Imelda García Procedure Date: 06/18/2024 6:17 AM Date of : 1960 Age: 63 Procedure: Upper GI endoscopy Indications: Dysphagia Providers: Brian Estrada DO Referring MD: Richelle Escalante Medicines: Monitored Anesthesia Care Patient Profile: This is a 63 year old female. Refer to note in patient chart for documentation of history and physical. Patient has symptoms of dysphagia with solids. Complications: No immediate complications. Procedure: Pre-Anesthesia Assessment: - Prior to the procedure, a History and Physical was performed, and patient medications and allergies were reviewed. The patient is competent. The risks and benefits of the procedure and the sedation options and risks were discussed with the patient. All questions were answered and informed consent was obtained. Patient identification and proposed procedure were verified by the physician in the pre-procedure area. Mental Status Examination: alert and oriented. Airway Examination: normal oropharyngeal airway and neck mobility. Respiratory Examination: clear to auscultation. CV Examination: normal. Prophylactic Antibiotics: The patient does not require prophylactic antibiotics. Prior Anticoagulants: The patient has taken no anticoagulant or antiplatelet agents. ASA Grade Assessment: II - A patient with mild systemic disease. After reviewing the risks and benefits, the patient was deemed in satisfactory condition to undergo the procedure. The anesthesia plan was to use monitored anesthesia care (MAC). Immediately prior to administration of medications, the patient was re-assessed for adequacy to receive sedatives. The heart rate, respiratory rate, oxygen saturations, blood pressure, adequacy of pulmonary ventilation, and response to care were monitored throughout the procedure. The physical status of the patient was re-assessed after the procedure. After obtaining informed consent, the endoscope was passed under direct vision. Throughout the procedure, the patient's blood pressure, pulse, and oxygen saturations were monitored continuously. The gastroscope was introduced through the mouth, and advanced to the second part of duodenum. The upper GI endoscopy was accomplished without difficulty. The patient tolerated the procedure well. Scope In: 6:47:07 AM Scope Out: 7:02:53 AM Total Procedure Duration Time 0 hours 15 minutes 46 seconds Findings: Mucosal changes including ringed esophagus, feline appearance, longitudinal furrows, small-caliber esophagus, white plaques, circumferential folds, congestion (edema), longitudinal markings, punctate white spots and stenosis were found in the entire esophagus. Esophageal findings were graded using the Eosinophilic Esophagitis Endoscopic Reference Score (EoE-EREFS) as: Edema Grade 1 Present (decreased clarity or absence of vascular markings), Rings Grade 2 Moderate (distinct rings that do not occlude passage of diagnostic 8-10 mm endoscope), Exudates Grade 2 Severe (scattered white lesions involving 10 percent or greater of the esophageal surface area), Furrows Grade 2 Severe (vertical lines with clear depth) and Stricture present. Biopsies were obtained from the proximal and distal esophagus with cold forceps for histology of suspected eosinophilic esophagitis. Verification of patient identification for the specimen was done. Estimated blood loss was minimal. One benign-appearing, intrinsic severe (stenosis; an endoscope cannot pass) stenosis was found 38 to 40 cm from the incisors. This stenosis measured 3 cm (in length). The stenosis was traversed. Coagulation for tissue destruction using argon plasma at 0.3 liters/minute and 20 perrin was successful. Estimated blood loss was minimal. A medium-sized hiatal hernia was present. No other significant abnormalities were identified in a careful examination of the stomach. No gross lesions were noted in the first portion of the duodenum. Impression: - Esophageal mucosal changes secondary to eosinophilic esophagitis. - Benign-appearing esophageal stenosis. Treated with argon plasma coagulation (APC). - Medium-sized hiatal hernia. - No gross lesions in the first portion of the duodenum. - Biopsies were taken with a cold forceps for evaluation of eosinophilic esophagitis. Recommendation: - Discharge patient to home. - Resume previous diet. - Continue present medications. - Await pathology results. Procedure Code(s): --- Professional --- 36459, Esophagogastroduodenoscopy, flexible, transoral; with ablation of tumor(s), polyp(s), or other lesion(s) (includes pre- and post-dilation and guide wire passage, when performed) 67486, 59,51, Esophagogastroduodenoscopy, flexible, transoral; with biopsy, single or multiple CPT copyright 2021 [employer]. All rights reserved. The codes documented in this report are preliminary and upon airplane engineer review may be revised to meet current compliance requirements. Brian Estrada DO 06/18/2024 7:08:42 AM This report has been signed electronically. Number of Addenda: 0 Note Initiated On: 06/18/2024 6:17 AM
--- NOTE | 2024-06-18 07:10 | OP.CCLET_ITS ---
06/18/2024 Richelle Escalante [address] [place] [address] Re : Upper GI endoscopy procedure for Imelda García Dear Dr. Escalante This procedure was performed on Tuesday, June 18, 2024. My impressions and recommendations are as follows: Impressions : - Esophageal mucosal changes secondary to eosinophilic esophagitis. - Benign-appearing esophageal stenosis. Treated with argon plasma coagulation (APC). - Medium-sized hiatal hernia. - No gross lesions in the first portion of the duodenum. - Biopsies were taken with a cold forceps for evaluation of eosinophilic esophagitis. Recommendations : - Discharge patient to home. - Resume previous diet. - Continue present medications. - Await pathology results. My findings are described in the full procedure note, which is enclosed. If I can be of further assistance, please feel free to contact me at . Sincerely, Brian Friend, 06/18/2024 7:08:42 AM This report has been signed electronically.
[2024-06-18 07:15] VITALS: BP 118/79; BP 119/81; PULSE 82; RESP 16; TEMP 36.1; O2SAT 92
--- NOTE | 2024-06-18 07:18 | PCM.POST.ANE ---
Anesthesia: Postop Eval I Current Vital Signs Temperature: 97 F Pulse Rate: 79 Blood Pressure: 118/79 Respiratory Rate: 16 Pulse Ox: 99 Oxygen Delivery Method: Room Air Assessment Airway patent: Yes Spontaneous unlabored respirations: Yes Mental status: Awake and Calm nausea: No Vomiting: No Anesthesia Complication: Yes Anesthesia Complication Comment:: pt coughed up blood and gastric content after procedure Fluid Hydration Crystalloid volume administer (ml): 50 Total IV fluid infused: 50 Progress Note Anesthesia document: Postop Eval 1 completed: Yes
[2024-06-18 07:20] VITALS: BP 104/80; BP 118/79; BP 119/81; PULSE 73; PULSE 79; RESP 16; TEMP 36.1; O2SAT 93; O2SAT 99
[2024-06-18 07:25] VITALS: BP 109/80; BP 119/81; PULSE 71; RESP 16; TEMP 36.2; O2SAT 92
--- NOTE | 2024-06-18 07:25 | PCM.POSTANE2 ---
Anesthesia Postop Eval I Sum Postop Eval Completion status Anesthesia document: Postop Eval 1 completed: Yes Anesthesia Postop Eval I Summary Anesthesia Postop Eval I Summary: Anesthesia Postop Eval I: Assessment Summary Airway patent Yes 06/18/24 07:20 [email or web address] Spontaneous unlabored Yes 06/18/24 07:20 [email or web address] respirations Mental status Awake,Calm 06/18/24 07:20 [email or web address] nausea No 06/18/24 07:20 [email or web address] Vomiting No 06/18/24 07:20 [email or web address] Anesthesia Postop Eval I: Fluid Summary Crystalloid volume administer 50 06/18/24 07:20 [email or web address] (ml) Colloids volume administered ( ml) Blood Product volume administered (ml) Total IV fluid infused 50 06/18/24 07:20 [email or web address] Anesthesia Postop Eval I: Summary Notes Anesthesia Complication Yes 06/18/24 07:20 [email or web address] Anesthesia Complication pt coughed up 06/18/24 07:20 [email or web address] Comment: blood and gastric content after procedure Post-operative progress note Anesthesia: Postop Eval II Evaluation Mental status: Awake Pain Level: 0 nausea: No Vomiting: No
[2024-06-18 07:37] VITALS: BP 119/81
== END 2024-06-18 07:46 | disposition home or self-care (01) ==
LOC: EN 05:31 → AC 05:35
PROVIDERS: PCP Family Medicine; Referring Provider Family Medicine; Visit Provider Internal Medicine Gastroenterology
PROC: 0DJ08ZZ Inspection of Upper Intestinal Tract, Via Natural or Artificial Opening Endoscopic (ICD-10-PCS; CPT 43235; principal; 2024-06-18 06:25)
DX: K20.0 Eosinophilic esophagitis (principal); K22.2 Esophageal obstruction; K44.9 Diaphragmatic hernia without obstruction or gangrene; K21.9 Gastro-esophageal reflux disease without esophagitis; E07.9 Disorder of thyroid, unspecified; Z79.890 Hormone replacement therapy
CPT/HCPCS: 43239; 43270; 88305; 88312; A4216; J2405

== ENCOUNTER → 2024-10-15 | Outpatient (CLI) | payer BC, SELFPAY | END | disposition home or self-care (01) | LOC: LABSPEC 11:39 | PROVIDERS: PCP Family Medicine; Referring Provider Obstetrics & Gynecology; Visit Provider Obstetrics & Gynecology | DX: N89.8 Other specified noninflammatory disorders of vagina (principal) | CPT/HCPCS: 87070; 87205 ==

== ENCOUNTER 2025-02-11 05:57 | Day surgery (SDC) | payer BC, SELFPAY ==
[2025-02-11] VITALS (7 sets, daily range): BP systolic 106–142; BP diastolic 67–95; PULSE 62–70; RESP 16–20; TEMP 36.1–36.3; O2SAT 97–99; BMI 29.9
--- OUTSIDE RECORDS SUMMARY | 2025-02-11 06:01 | XMS RPT_ITS | CCD ---
Author Organization [facility] CliniSyor Care Team Providers Care Binder Coverstitch Name Role Phone ELBA SMITH, SAMIA Childress Primary Care Physician [phone] Dr. Richelle Escalante Primary Care Provider [phone] Dr. Richelle Escalante Referring Provider [phone] Wendie Calvo Attending Provider [phone] Dr. Richelle Escalante Primary Care Provider [phone] Dr. Richelle Escalante Referring Provider [phone] Wendie Calvo Attending Provider [phone] Deshaun AIRPORT MAINTENANCE CHIEF, AIRPORT MAINTENANCE CHIEF-C Marcella Combs Attending Provider [phone] Dr. Brian Estrada Attending Provider [phone] Dr. Brian Estrada Other Provider [phone] AUGUSTIN HEARN DO Attending Unavailab SAMIA Diaz MD Primary Care Unavailable Dr. Richelle Escalante DO Primary Care Provider [phone] Dr. Richelle Escalante DO Referring Provider [phone] Dr. Graciela Almazan MD Attending Provider [phone] Dr. Graciela Almazan MD Referring Provider [phone] FriendBrian Consulting Unavailable Malys, Richelle Referring Unavailable Malys, Richelle Primary Care Unavailable FriendBrian Attending Unavailable Malys, Richelle Referring Unavailable Malys, Richelle Primary Care Unavailable Brian Estrada Attending Unavailable Malys, Richelle Primary Care Unavailable Graciela Almazan Referring Unavailable Graciela Almazan Attending Unavailable FriendBrian Attending Unavailable Malys, Richelle Primary Care Unavailable Malbahman, Richelle Primary Care Unavailable Graciela Almazan Referring Unavailable Graciela Almazan Attending Unavailable Malbahman, Richelle Primary Care Unavailable Malbahman, Richelle Referring Unavailable Graciela Almazan Attending Unavailable MalRichelle ruggiero Referring Unavailable Friend, Brian Attending Unavailable Medications Current Medications Medication Drug Class(es) Dates Sig (Normalized) Sig (Original) S10-Yebbtbkdenfdhsb ofolate-B6 (1 source) Start: 11-21-2022 W77-Bopyzupxrpwuxp rofolate-B6 Active TABLET PO November 21, 2022 12:00am Biest 3 mg (1 source) Start: 10-15-2024 Biest 3 mg Active PO October 15, 2024 12:00am levothyroxine sodium 0.1 mg oral tablet (4 sources) l-Thyroxine Start: 05-10-2019 take 1 tablet by mouth once daily Levothyroxine 100 mcg tablet Active 100 ug PO DAILY May 10, 2019 1:00am liothyronine sodium 0.005 mg oral tablet (2 sources) l-Triiodothyronine Start: 11-21-2022 take 1 tablet by mouth twice daily Liothyronine 5 mcg Tablet Active 5 ug PO TWICE A DAY November 21, 2022 12:00am metroNIDAZOLE 500 mg oral tablet (1 source) Nitroimidazole Antimicrobial Start: 10-15-2024 take 1 tablet by mouth twice daily Metronidazole 500 mg tablet Active 500 mg PO TWICE A DAY 14 October 15, 2024 12:00am October 21, 2024 12:00am pantoprazole 40 mg delayed release oral tablet (18 sources) Proton Pump Inhibitor Start: 06-25-2024 take 1 tablet by mouth once daily Pantoprazole 40 mg tablet,delayed release (DR/EC) Active 40 mg PO daily June 25, 2024 1:00am Start: 01-28-2022 End: 05-28-2024 take 1 tablet by mouth once daily Pantoprazole 40 mg tablet,delayed release (DR/EC) Discontinued 0 .ROUTE .COMPLEX October 24, 2022 2:07pm May 28, 2024 9:35am Take 1 tablet by mouth once daily Start: 05-01-2021 End: 01-25-2022 Pantoprazole (Protonix) 40 m g tablet,delayed release (DR/EC) Discontinued 40 mg PO .COMPLEX 170 May 01, 2021 1:00am January 25, 2022 11:19am Take one tab two times a day for eight weeks, then one time a day for 8 weeks. Start: 04-16-2021 End: 05-01-2021 take 1 tablet by mouth once daily Pantoprazole (Protonix) 40 mg tablet,delayed release (DR/EC) Discontinued 40 mg PO DAILY April 16, 2021 1:00am May 01, 2021 3:06pm progesterone 100 mg oral capsule (5 sources) Progesterone Start: 10-15-2024 take 1 capsule by mouth once daily in the morning Progesterone Micronized 100 mg capsule Active 100 mg PO EVERY MORNING October 15, 2024 12:00am off 7 days; repeat cycle Start: 05-10-2019 End: 04-09-2022 take 1 capsule by mouth once Progesterone Micronized 1 00 mg capsule Discontinued 100 mg PO ONCE May 10, 2019 1:00am April 09, 2022 8:13am testosterone 200 mg drug implant (5 sources) Androgen Start: 10-15-2024 Testosterone 2 00 mg pellet Active 200 mg SC ONCE October 15, 2024 12:00am as a single dose Start: 05-10-2019 End: 04-09-2022 Testosterone Enanthate 50 mg /0.5 mL auto-injector Discontinued 20 mg SC .COMPLEX May 10, 2019 1:00am April 09, 2022 8:13am 20 mg SC APPLY ONE CLICK PER NIGHT ; Thyroid (Pork) ([place] Thyroid) 15 mg tablet (1 source) Start: 10-15-2024 take 1 tablet by mouth once daily Thyroid (Pork) ([place] Thyroid) 15 mg tablet Active 15 mg PO daily October 15, 2024 12:00am Completed/Discontinued Medications Medication Drug Class(es) Dates Sig (Normalized) Sig (Original) ascorbic acid 25 mg oral tablet (6 sources) Vitamin C Start: 11-21-2022 End: 05-28-2024 Ascorbic Acid (Vitamin C) (Vitamin C) 25 mg Tablet Discontinued mg PO November 21, 2022 12:00am May 28, 2024 9:35am Start: 04-16-2021 End: 08-22-2022 take 1 capsule by mouth once daily Ascorbic Acid (Vitamin C) 500 mg capsule Discontinued 500 mg PO DAILY April 16, 2021 1:00am August 22, 2022 8:57am W93-Wpxlxbgyovaefqxnnsmghw-A 6 1,000mcg-680mcg DFE-1.5 mg Tablet,Chewable (1 source) Start: 11-21-2022 End: 05-28-2024 H23-Nahxrugaekljbgxqcwezgv-N 6 1,000mcg-680mcg DFE-1.5 mg Tablet,Chewable Discontinued {tbl} PO November 21, 2022 12:00am May 28, 2024 9:35am BIEST (3 sources) Start: 05-10-2019 End: 04-09-2022 BIEST Discontinued SC Decemb er 2018 1:00am April 09, 2022 8:12am Start: 05-10-2019 End: 04-09-2022 BIEST Discontinued SC Decemb er 2018 12:00am April 09, 2022 7:12am BIEST auto-injector (1 source) Start: 05-10-2019 End: 04-09-2022 BIEST auto-injector Discontinued SC May 10, 2019 1:00am April 09, 2022 8:12am bisacodyl 5 mg delayed release oral tablet (4 sources) Stimulant Laxative Start: 04-16-2021 End: 08-02-2021 take 1 tablet by mouth once Bisacodyl 5 mg tablet,delayed release (DR/EC) Discontinued 5 mg PO ONCE 4 April 16, 2021 1:00am August 02, 2021 10:21am take as directed for bowel prep cholecalciferol 0.125 mg oral capsule (4 sources) Vitamin D Start: 04-16-2021 End: 05-28-2024 take 1 capsule by mouth once daily Cholecalciferol (Vitamin D3) 125 mcg (5,000 unit) capsule Discontinued 125 ug PO DAILY April 16, 2021 1:00am May 28, 2024 9:35am Chromium (2 sources) Standardized Chemical Allergen Start: 11-21-2022 End: 05-28-2024 Chromium 1 mg Capsule Discontinued mg PO November 21, 2022 12:00am May 28, 2024 9:35am Start: 11-21-2022 Chromium Activ e MG PO November 21, 2022 12:00am estrogens, conjugated (half-way) 0.3 mg oral tablet (4 sources) Estrogen Start: 04-10-2022 End: 08-22-2022 take 1 tablet by mouth once daily Conjugated Estrogens 0.3 mg tablet Discontinued 0.3 mg PO DAILY April 10, 2022 12:00am August 22, 2022 8:57am cyclically estrogens, conjugated (half-way) 0.3 mg / medroxyPROGESTERone acetate 1.5 mg oral tablet (4 sources) Progestin, Estrogen Start: 04-09-2022 End: 08-22-2022 take 0.3-1.5 mg by mouth once daily Conj Estrog-Medroxyprog est [place] (Prempro) 0.3-1.5 mg tablet Discontinued 1 {tbl} PO DAILY April 09, 2022 12:00am August 22, 2022 8:57am IDDORAL IODINE (3 sources) Start: 05-10-2019 End: 04-16-2021 IDDORAL IODINE Discontinued 12.5 MG SL DAILY May 10, 2019 1:00am April 16, 2021 2:03pm Start: 05-10-2019 End: 04-16-2021 IDDORAL IODINE Discontinued 12.5 MG SL DAILY May 10, 2019 12:00am April 16, 2021 1:03pm IDDORAL IODINE capsule (1 source) Start: 05-10-2019 End: 04-16-2021 IDDORAL IODINE capsule Discontinued 12.5 mg SL DAILY May 10, 2019 1:00am April 16, 2021 2:03pm magnesium oxide 500 mg oral capsule (3 sources) Start: 08-22-2022 End: 05-28-2024 take 1 capsule by mouth once daily Magnesium Oxide 500 mg capsule Discontinued 500 mg PO DAILY August 22, 2022 12:00am May 28, 2024 9:35am medroxyPROGESTERone acetate 2.5 mg oral tablet (4 sources) Progestin Start: 04-10-2022 End: 08-22-2022 take 1 tablet by mouth once daily Medroxyprogesterone 2.5 mg tablet Discontinued 2.5 mg PO DAILY April 10, 2022 12:00am August 22, 2022 8:57am Ovfppgnnfxfr-Ly-Fcuk-Min erals (Multiple Vitamin, Womens) tablet (4 sources) Start: 05-10-2019 End: 08-22-2022 Iybalrisshtx-Dg-Yjtk-Min erals (Multiple Vitamin, Womens) tablet Discontinued 1 {tbl} PO .TWICE DAILY May 10, 2019 1:00am August 22, 2022 8:57am Start: 05-10-2019 End: 08-22-2022 take 1 tablet by mouth twice daily Dqizchdibgen-He-Jraz-Minerals (Multiple Vitamin, Womens) tablet Discontinued 1 TABLET PO .TWICE DAILY May 10, 2019 1:00am August 22, 2022 8:57am Start: 05-10-2019 take 1 tablet by ottoniel th twice daily Awlpcjmsuefo-Sy-Uxuu-Minerals (Multiple Vitamin, Womens) tablet Active 1 TABLET PO .TWICE DAILY May 10, 2019 12:00am polyethylene glycol 3350 34291 mg powder for oral solution (4 sources) Osmotic Laxative Start: 04-16-2021 End: 08-02-2021 Polyethylene Glycol 3350 (Miralax) 17 gram/dose powder Discontinued 17 g PO DAILY 238 April 16, 2021 1:00am August 02, 2021 10:21am take as directed for bowel prep PORCINE THYROID (3 sources) Start: 05-10-2019 End: 05-10-2019 PORCINE THYROID Discontinued May 10, 2019 1:00am May 10, 2019 10:45am Start: 05-10-2019 End: 05-10-2019 PORCINE THYROID Discontinued May 10, 2019 12:00am May 10, 2019 9:45am PORCINE THYROID capsule (1 source) Start: 05-10-2019 End: 05-10-2019 PORCINE THYROID capsule Discontinued May 10, 2019 1:00am May 10, 2019 10:45am sucralfate 1000 mg oral tablet (4 sources) Aluminum Complex Start: 05-01-2021 End: 05-31-2021 Sucralfate (Carafate) 1 gram tablet Discontinued 1 g PO THREE TIMES A DAY May 01, 2021 1:00am May 30, 2021 1:00am May 31, 2021 1:01am Take one tab three times a day for thirty days then stop. Zinc (4 sources) Start: 04-16-2021 End: 05-28-2024 take 1 tablet by mouth once daily Zinc 50 mg tablet Discontinued 50 mg PO DAILY April 16, 2021 1:00am May 28, 2024 9:36am Start: 04-16-2021 take 50 mg by mouth once daily Zinc Active 50 MG PO DAILY April 16, 2021 1:00am Start: 04-16-2021 take 50 mg by mouth once daily Zinc Active 50 MG PO DAILY April 16, 2021 12:00am Problems Active Problems Problem Classification Problem Date Documented Da te Episodic/Chronic Abdominal pain (4 sources) Abdominal pain; Translations: [Unspecified abdominal pain] 11-15-2020 Episodic Esophageal disorders (5 sources) Gastric reflux; Translations: [Gastro-esophageal reflux disease without esophagitis] Onset: 07-13-2024 11-18-2022 Chronic Comment on above: PER PT, CONTROLLED O N OTC MEDS Menopausal disorders (5 sources) Menopausal syndrome; Translations: [Menopausal and female climacteric states] Chronic Other female genital disorders (2 sources) Vaginal discharge; Translations: [Other specified noninflammatory disorders of vagina] 10-15-2024 Episodic Comment on above: culture sent Other gastrointestinal disorders (4 sources) Dysphagia; Translations: [Dysphagia, unspecified] 04-16-2021 Episodic Other gastrointestinal disorders (1 source) Chronic constipation; Translations: [Other constipation] 12-17-2022 Episodic Thyroid disorders (4 sources) Disorder of thyroid gland; Translations: [Disorder of thyroid, unspecified] 04-09-2022 Episodic Past or Other Problems Problem Classification Problem Date Documented Da te Episodic/Chronic Other female genital disorders (1 source) Other specified noninflammatory disorders of vagina; Translations: [Other specified noninflammatory disorders of vagina] Onset: 10-19-2024 Episodic Other gastrointestinal disorders (2 sources) Dysphagia, unspecified; Translations: [Dysphagia, unspecified] Onset: 07-13-2024 09-05-2022 Episodic Other screening for suspected conditions (not mental disorders or infectious disease) (6 sources) Patient encounter status; Translations: [Encounter for screening for malignant neoplasm of colon] Onset: 10-13-2024 04-16-2021 Episodic Results Test Name Value Interpretation Reference Range Facility Genital Culture Comprehensiv carly 10-18-2024 VAC Reason for Exam: vag inal discahrge No yeast, Neisseria or beta-hemolytic Streptococcus isolated. G. vaginalis (Presumptive) Amount Growth 3+ Normal [facility] Comment on above: Performed By: #### M 100.1999, M100.3200 #### [facility] [address] [place], [place], [id number] Genital cultureOrdered By: Maria Guadalupe Almazan on 10-15-2024 Source specific culture G. vaginalis (Presumptive) Abnormal [facility] Gram Stainon 10-15-2024 GS Reason for Exam: vag inal discahrge Gram Stain 4+ Gram negative rods No Gram negative diplococci 2+ Epithelial cells 2+ Clue Cells Normal [facility] Comment on above: Performed By: #### M 100.1999, M100.3200 #### [facility] [address] 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 Is patient in pain?: No Allergies No Known Allergies Allergy (Verified 06/18/24 05:47) Medications ???Medication ???Instructions ???Recorded ???Confirmed ???Type levothyroxine 100 mcg tablet 100 mcg PO DAILY #90 tabs 05/10/19 10/15/24 Rx liothyronine 5 mcg tablet 5 mcg PO BID 11/21/22 10/15/24 His tory pantoprazole 40 mg tablet,delayed 40 mg PO QDAY #60 tabs 06/25/24 0 10/15/24 Rx release Biest PO 10/15/24 History progesterone micronized 100 mg 100 mg PO QAM 10/15/24 10/15/24 Hi story capsule testosterone 200 mg implant pellet 200 mg subcut ONCE 10/15/2403/03 History thyroid (pork) 15 mg tablet 15 mg PO QDAY 10/15/24 10/15/24 Hi story ([place] Thyroid) Is last menstrual period known: No Post menopausal: Yes Patient : No : No PFSH Medical History PONV (postoperative nausea and vomiting) Non-smoker Wears glasses Post-menopausal History of hiatal hernia Gastric reflux Thyroid disease Goiter Surgical History History of colonoscopy History of esophagogastroduodenoscopy (EGD) Hx of tonsillectomy Family History Mother Arthritis Lung cancer Father Esophageal cancer Other OSTEOPEROSIS Social History (Updated 10/15/24 @ 08:03 by Prabha Strange) number of children: 2 Smoking Status: Never smoker alcohol intake: never substance use type: does not use caffeine: Yes what type of physical activity do you participate in: walking and weight training frequency: 3-4 times per week seatbelt use: always do you feel safe at home: Yes additional social history: -Karri History 4 Elective abortions Hx Para 2 Spontaneous abortions Hx # Term Pregnancies Ectopic pregnancies Hx # Pregnancies Multiple births # of living children Past Pregnancies Del. Date Name GA/Weeks Outcome Route Bth Weight Gen Labor Lgth Anesthesia Del Locatn Provider FOB Unknown [place]ash[place] Unknown [place] HPI Encounter for routine gynecological examination Details: GUSTAVO SOLORZANO is a 64 year old who presents for annual exam. Last PAP: 08/02/2021 - normal History of abnormal PAP: Last mammogram: 08/22/2022 - normal History of abnormal mammogram: Colon cancer screening: colonoscopy - 2020 Other preventative health care screenings: PCP Malys Female Reproductive History Cycle Length: 21-35 Bleeding Duration: 5 Questions: metorrhagia: No, sexually active: Yes, dyspareunia: No and PCB: No Menopausal Symptoms: No hot flashes, No night sweats, No weight change, No mood changes, No difficulty concentrating, No sleep problems and No change in libido ROS Const Constitutional: Reports as per HPI; Denies fatigue, increased appetite, poor appetite, night sweats, weight gain or weight loss Cardio Card: Denies chest pain Resp Resp: Denies cough or dyspnea GI GI: Reports as per HPI; Denies abdominal pain, bloating, constipation, nausea or vomiting : Reports as per HPI and other; Denies difficulty voiding, dysuria, hematuria, hot flashes, nipple discharge, pelvic pain, prolapse symptoms, urinary frequency, urinary incontinence, urinary urgency, vaginal discharge, vaginal dryness, vaginal odor or vaginal pruritus Skin Skin/Breast: Denies changing lesions, breast mass, breast pain, breast skin changes or nipple discharge Psych Psych: Denies anxiety, change in libido, depression or difficulty concentrating Exam Const General: cooperative, healthy appearing, comfortable, no acute distress, well developed and well groomed [facility] Head: normal to inspection and normocephalic Ears: hearing grossly normal bilaterally and external ears normal Nose: external nose normal Face and sinus: normal facial exam Neck Neck: normal visual inspection, full ROM and no lymphadenopathy Thyroid: thyroid normal Chest Chest palpation inspection: normal inspection of the chest Breast inspection: normal inspection of the breasts and normal inspection of the axillae Breast palpation: normal palpation of the breasts, normal palpation of the axillae and no axillary lymphadenopathy Resp (more content not included)... Normal [facility] E2on 09-20-2024 Estradiol Level 70.90 pg/mL Normal [facility] Comment on above: Result Comment: No te - New Reference Range in effect 19 Adult Female E2 Reference Ranges: Follicular phase 19.5 - 144.2 pg/mL Midcycle 63.9 - 356.7 pg/mL Luteal phase 55.8 - 214.2 pg/mL Post menopausal 0 - 33.2 pg/mL Performed By: #### F T3, TSH, FT4 #### [place] [address] #### E2, TESTO, PROG #### [place] [address] FT3on 09-20-2024 Free T3 [Mass/Vol] 2.61 pg/mL Normal 2.30-4.00 [facility] Comment on above: Performed By: #### F T3, TSH, FT4 #### [address] [address] #### E2, TESTO, PROG #### [place] [address] FT4on 09-20-2024 Free T4 [Mass/Vol] 0.63 ng/dL Low 0.76-1.46 [facility] Comment on above: Performed By: #### F T3, TSH, FT4 #### [place] [address] #### E2, TESTO, PROG #### [place] [address] PROGon 09-20-2024 Progesterone Level 24.5 ng/mL Normal [facility] Comment on above: Result Comment: Adul t Female Progesterone Reference Ranges: Follicular phase <0.21 - 1.40 ng/mL Luteal phase 3.34 - 25.56 ng/mL Mid-Luteal phase 4.44 - 28.03 ng/mL Postmenopausal <0.21 - 0.73 ng/ml Female: First trimester 11.22 - 90.00 ng/ml Second trimester 25.55 - 89.40 ng/ml Third trimester 48.40 - 422.50 ng/ml Performed By: #### F T3, TSH, FT4 #### [place] [address] #### E2, TESTO, PROG #### [place] [address] TESTOon 09-20-2024 Testosterone Lvl 109.71 ng/dL Normal [facility] Comment on above: Result Comment: Norm al Reference Ranges for Females: Female Premenopause Age 21-60 9.01-47.94 ng/dL Female Postmenopause Age 45-89 <7.00-45.62 ng/dL Performed By: #### F T3, TSH, FT4 #### [place] [id number] [place], [place] [address] #### E2, TESTO, PROG #### [address] [address] TSHon 09-20-2024 TSH Qn 2.84 m[IU]/L Normal 0.36-3.74 [facility] Comment on above: Performed By: #### F T3, TSH, FT4 #### [address] [address] #### E2, TESTO, PROG #### [address] [address] EGD Reporton 06-18-2024 EGD Report [facility] Medical Records Department [address] [place] [address] EGD Report MR#: [id number] Acct: [id number] Name: GUSTAVO SOLORZANO SAVANNAH Rep #: [id number] : 1960 63 From: Brian Estrada DO PCP: Dr. Richelle Escalante DO [place] [place] Name: Gustavo Solorzano Procedure Date: 06/18/2024 6:17 AM Date of : 1960 Age: 63 Procedure: Upper GI endoscopy Indications: Dysphagia Providers: Brian Estrada DO Referring MD: Richelle Escalante Medicines: Monitored Anesthesia Care Patient Profile: This is a 63 year old female. Refer to note in patient chart for documentation of history and physical. Patient has symptoms of dysphagia with solids. Complications: No immediate complications. Procedure: Pre-Anesthesia Assessment: - Prior to the procedure, a History and Physical was performed, and patient medications and allergies were reviewed. The patient is competent. The risks and benefits of the procedure and the sedation options and risks were discussed with the patient. All questions were answered and informed consent was obtained. Patient identification and proposed procedure were verified by the physician in the pre-procedure area. Mental Status Examination: alert and oriented. Airway Examination: normal oropharyngeal airway and neck mobility. Respiratory Examination: clear to auscultation. CV Examination: normal. Prophylactic Antibiotics: The patient does not require prophylactic antibiotics. Prior Anticoagulants: The patient has taken no anticoagulant or antiplatelet agents. ASA Grade Assessment: II - A patient with mild systemic disease. After reviewing the risks and benefits, the patient was deemed in satisfactory condition to undergo the procedure. The anesthesia plan was to use monitored anesthesia care (MAC). Immediately prior to administration of medications, the patient was re-assessed for adequacy to receive sedatives. The heart rate, respiratory rate, oxygen saturations, blood pressure, adequacy of pulmonary ventilation, and response to care were monitored throughout the procedure. The physical status of the patient was re-assessed after the procedure. After obtaining informed consent, the endoscope was passed under direct vision. Throughout the procedure, the patient's blood pressure, pulse, and oxygen saturations were monitored continuously. The gastroscope was introduced through the mouth, and advanced to the second part of duodenum. The upper GI endoscopy was accomplished without difficulty. The patient tolerated the procedure well. Scope In: 6:47:07 AM Scope Out: 7:02:53 AM Total Procedure Duration Time 0 hours 15 minutes 46 seconds Findings: Mucosal changes including ringed esophagus, feline appearance, longitudinal furrows, small-caliber esophagus, white plaques, circumferential folds, congestion (edema), longitudinal markings, punctate white spots and stenosis were found in the entire esophagus. Esophageal findings were graded using the Eosinophilic Esophagitis Endoscopic Reference Score (EoE-EREFS) as: Edema Grade 1 Present (decreased clarity or absence of vascular markings), Rings Grade 2 Moderate (distinct rings that do not occlude passage of diagnostic 8-10 mm endoscope), Exudates Grade 2 Severe (scattered white lesions involving 10 percent or greater of the esophageal surface area), Furrows Grade 2 Severe (vertical lines with clear depth) and Stricture present. Biopsies were obtained from the proximal and distal esophagus with cold forceps for histology of suspected eosinophilic esophagitis. Verification of patient identification for the specimen was done. Estimated blood loss was minimal. One benign-appearing, intrinsic severe (stenosis; an endoscope cannot pass) stenosis was found 38 to 40 cm from the incisors. This stenosis measured 3 cm (in length). The stenosis was traversed. Coagulation for tissue destruction using argon plasma at 0.3 liters/minute and 20 perrin was successful. Estimated blood loss was minimal. A medium-sized hiatal hernia was present. No other significant abnormalities were identified in a careful examination of the stomach. No gross lesions were noted in the first portion of the duodenum. Impression: - Esophageal mucosal changes secondary to eosinophilic esophagitis. - Benign-appearing esophageal stenosis. Treated with argon plasma coagulation (APC). - Medium-sized hiatal hernia. - No gross lesions in the first portion of the duodenum. - Biopsies were taken with a cold forceps for evaluation of eosinophilic esophagitis. Recommendation: - Discharge patient to home. - Resume previous diet. - Continue present medications. - Await pathology results. Procedure Code(s): --- Professional --- 43940, Esophagogastroduodenoscopy, flexible, transoral; with ablation of tumor(s), polyp(s), or oth (more content not included)... [facility] MR/POSTOP.[facility] 06-18-2024 MR/POSTOP.[facility] Medical Records Department [address] [place] [address] Anesthesia Postop Eval I 06/18/24 0718 MR#: [id number] Acct: [id number] Name: GUSTAVO SOLORZANO Rep #: [id number] : 1960 63 From: Pawan Verdugo PCP: Dr. Richelle Escalante, DO Status:REG SDC Y Race: C Location: [place] [address] Anesthesia: Postop Eval I Current Vital Signs Temperature: 97 F Pulse Rate: 79 Blood Pressure: 118/79 Respiratory Rate: 16 Pulse Ox: 99 Oxygen Delivery Method: Room Air Assessment Airway patent: Yes Spontaneous unlabored respirations: Yes Mental status: Awake and Calm nausea: No Vomiting: No Anesthesia Complication: Yes Anesthesia Complication Comment:: pt coughed up blood and gastric content after procedure Fluid Hydration Crystalloid volume administer (ml): 50 Total IV fluid infused: 50 Progress Note Anesthesia document: Postop Eval 1 completed: Yes 06/18/2420 Date Pawan Irvinignmariangel Signature: Date CC: Signed Normal [facility] MR/[id number] 06-18-2024 MR/POSTOPAN2 [facility] Medical Records Department [address] [place] [address] Anesthesia Postop Eval II 06/18/24724 MR#: [id number] Acct: [id number] Name: GUSTAVO SOLORZANO Rep #: [id number] : 1960 63 From: Amanda Ring PCP: Dr. Richelle Escalante, DO Status:[facility] [place] Race: C Location: [place] Anesthesia Postop Eval I Sum Postop Eval Completion status Anesthesia document: Postop Eval 1 completed: Yes Anesthesia Postop Eval I Summary Anesthesia Postop Eval I Summary: Anesthesia Postop Eval I: Assessment Summary Airway patent Yes 06/18/24 07:20 [email or web address] Spontaneous unlabored Yes 06/18/24 07:20 [email or web address] respirations Mental status Awake,Calm 06/18/24 07:20 [email or web address] nausea No 06/18/24 07:20 [email or web address] Vomiting No 06/18/24 07:20 [email or web address] Anesthesia Postop Eval I: Fluid Summary Crystalloid volume administer 50 06/18/24 07:20 [email or web address] (ml) Colloids volume administered ( ml) Blood Product volume administered (ml) Total IV fluid infused 50 06/18/24 07:20 [email or web address] Anesthesia Postop Eval I: Summary Notes Anesthesia Complication Yes 06/18/24 07:20 [email or web address] Anesthesia Complication pt coughed up 06/18/24 07:20 [email or web address] Comment: blood and gastric content after procedure Post-operative progress note Anesthesia: Postop Eval II Evaluation Mental status: Awake Pain Level: 0 nausea: No Vomiting: No 06/18/24925 Date Amanda Irvinignmariangel Signature: Date CC: Signed Normal [facility] Special Stain Group Ion 06-09 Special Stain Group I -------- Patient Age/Sex Location Account Attending Physician -------- GUSTAVO SOLORZANO 63/F LANG [id number] Brian Estrada DO -------- Specimen: [id number] Received: 06/18/24 Status: JUSTO Montanez Num: [id number] Spec Type: EGD BIOPSY Christian Dr: Brian Estrada DO HEADER OPERATION: EGD, biopsy, APC PRE-OP DIAGNOSIS: Eosinophilic esophagitis, dysphagia TISSUE SUBMITTED: Random esophagus biopsy -------- MICROSCOPIC DIAGNOSIS Esophagus, random biopsy: Fragments of gastroesophageal mucosa with increased number of eosinophils consistent with eosinophilic esophagitis. Focal ulceration and fibrinopurulent exudation. Moderate chronic inflammation and minimal acute inflammation. Intestinal metaplasia (goblet cell metaplasia) not identified. See comment. 06/21/2024 COMMENT Alcian blue/PAS stain with matched control is used in the evaluation of the specimen. Increased number of eosinophils (more than 20 per high power) are noted consistent with eosinophilic esophagitis. Correlation with clinical, endoscopic findings and appropriate follow up are necessary. MICROSCOPIC DESCRIPTION Slides are reviewed. GROSS DESCRIPTION Received in fixative is one container labeled with the patient's name and designated Random esophagus biopsy. The specimen consists of multiple irregular fragments of light lombardi soft tissue that in aggregate measure 1.9 x 0.5 x 0.3 cm. The specimen is totally submitted in one cassette. 06/18/2024 TC:2 [facility]:[id number] -------- Patient Age/Sex Location Account Attending Physician -------- GUSTAVO SOLORZANO/F EN [id number] Brian Estrada DO -------- Signed (signature on file) Dr. Ross Deal MD 06/21/24 1232 -------- Normal [facility] Comment on above: Performed By: #### P SSI #### [facility] [address] [place], [place], [id number] Gastroenterology Visit Repor ton 05-28-2024 Gastroenterology Visit Report [facility] Gastroenterology [address] [place] [address] OFFICE VISIT Date of Service: 05/28/24 MR#: [id number] Acct: [id number] Name: GUSTAVO SOLORZANO SAVANNAH Rep #: [id number] : 1960 Provider: Brian Estrada DO Age/Sex: 63/F Location: [facility] Status: Signed Intake Vital Signs 09/09/23 08:10 Height 5 ft 1 in Intake Visit Reasons: Hard Time Swallowing Chief Complaint: dysphagia Allergies No Known Allergies Allergy (Verified 09/09/23 08:04) Medications ???Medication ???Instructions ???Recorded ???Confirmed ???Type levothyroxine 100 mcg tablet 100 mcg PO DAILY #90 tabs 05/10/19 05/28/24 Rx liothyronine 5 mcg tablet 5 mcg PO BID 11/21/22 05/28/24 History PFSH Medical History Gastric reflux Goiter History of hiatal hernia Non-smoker PONV (postoperative nausea and vomiting) Post-menopausal Thyroid disease Wears glasses Surgical History History of colonoscopy History of esophagogastroduodenoscopy (EGD) Hx of tonsillectomy Family History Mother Arthritis Lung cancer Father Esophageal cancer Other OSTEOPEROSIS Social History Smoking Status: Never smoker alcohol intake: never substance use type: does not use caffeine: Yes what type of physical activity do you participate in: walking and weight training frequency: 3-4 times per week seatbelt use: always do you feel safe at home: Yes additional social history: -Karri HPI HPI Chief Complaint: dysphagia Details: GUSTAVO SOLORZANO, is a 63 F who presents to the office today for follow up. *BGI established 04.16.21 with dysphagia for 2-3 years. Previously established with Dr. Pino who she reports performed EGD with dilation. ? EGD and colonoscopy 04.30.21 EGD moderate Schatzki ring, Savary 60F; LA Grade A esophagitis; umbilicate submucosal lesion 10mm of gastric antrum, pancreatic rest. ? Colonoscopy without visual abnormality. OV 12..21 with dysphagia resolution. Increased amount of pain following EGD but this has resolved. Newly reports constipation. OV 3.30.23 chronic constipation an issue with desire to use zuPoo EGD 6.15.23 esophageal changes consistent with EOE, >20 eosin/field; Schatzki ring, Savary 60F; esophageal diverticulum; umbilicated submucosal lesion 5mm of gastric antrum, pancreatic rest. ? Biochemical CBC, ESR, RAST, IgAM without pertinent abnormality.? CRP H4.84, IgG H1661, IgE L5 OV 08.01.23 for the last two months she has been having difficulty swallowing. Protonix continues. OV 05.28.24 pt reports continued difficulty swallowing and states that she may need her esophagus dilated again. Reports this has been helpful in the past. ROS Const Constitutional: No fatigue, fever(s) or weight change ENT ENT: Positive for difficulty swallowing Gastro GI: Positive for difficulty swallowing; No abdominal pain, belching, bloating, change in bowel habits, change in stool character, coffee ground emesis, constipation, cramping, diarrhea, heartburn, feeling full early, excessive flatus, incontinent of stools, Vomiting blood/hematemesis, Blood in stool, loose stools, Black,tarry stools, nausea/dyspepsia, pain with swallowing, vomiting or other Musc Musculoskeletal: No joint pain Skin Skin: No yellowing of the eye or itchy eyes Psych Psychiatric: No anxiety and No depression Endo Endocrine: No fatigue or weight change Aller/Imm Allergy/Immunologic: No itchy eyes Michael/Lymp Hematologic/Lymphatic: No easy bleeding or easy bruising Exam Const General: cooperative, healthy appearing and comfortable Orientation: alert, awake and oriented x3 Assessment and Plan Assessment and Plan (1) Eosinophilic esophagitis: Status: Chronic (2) Dysphagia: Status: Chronic Plan: Secondary to hiatal hernia and multiple esophageal rings. Biopsies were negative for eosinophilic esophagitis. She stopped her PPI therapy because she saw a new homeopathic doctor and her symptoms of dysphagia come back. Will perform another upper endoscopy with dilation in we will restart her back on PPI once a day today. (3) Encounter for screening colonoscopy: Status: Acute Plan: Her colonoscopy was good except for some mild diverticular disease. She was given recommendations regarding increasing fiber in her diet. Recommendation for repeat colonoscopy was 10 years due to no family history of colon cancer or colon polyps and no personal history of polyps. (4) Abdominal pain: St (more content not included)... Normal [facility] - Chemistry and C hemistry - challengeOrdered By: Dr. Garcia on 08-22-2022 Free T4 [Mass/Vol] 1.36 ng/dL 0.76-1.46 [facility] T4 [Mass/Vol] 12.6 ug/dL 4.8-13.9 [facility] No Panel InformationOrdered By: Dr. Garcia on 08-22-2022 Thyroid Stimulating Hormone (TSH) 0.25 uIU/mL 0.358-3.74 [facility] Basophil percentageon 2021 Cholesterol [Mass/Vol] 300 mg/dL <200 [facility] Work Phone: Comment on above: <200 mg/dL Desirable 200-240 mg/dL Borderline >240 mg/dL High Risk Triglyceride [Mass/Vol] 193 mg/dL <199 [facility] Work Phone: Comment on above: The drugs N-Acetylcy steine and Metamizole may falsely depress this assay.Serum Triglycerides Reference Interval Normal <150 mg/dL Borderline high 150 - 199 mg/dL High 200 - 499 mg/dL Very High > or = 500 mg/dL Laboratory - Chemistry and C hemistry - challengeon 04-09-2022 Free T4 [Mass/Vol] 1.22 ng/dL 0.76-1.46 [facility] Work Phone: No Panel Informationon 04-09 Free Triiodothyronine (T3) pg/dL 2.7 pg/mL 2.18-3.98 [facility] Work Phone: Thyroid Stimulating Hormone (TSH) 6.50 uIU/mL 0.358-3.74 [facility] Work Phone: Serum or plasma cholesterol in HDL measurement (mass/volume)on 04-09-2022 Cholesterol in HDL [Mass/Vol] 65 mg/dL >40 [facility] Work Phone: Comment on above: The drugs N-Acetylcy steine and Metamizole may falsely depress this assay. Reference Range HDL <40 mg/dL Low HDL Cholesterol HDL >or= 60 mg/dL High HDL Cholesterol Serum or plasma cholesterol in VLDL measurement (mass/volume)on 04-09-2022 Cholesterol in VLDL [Mass/Vol] 39 mg/dL 5-40 [facility] Work Phone: Serum or plasma low density lipoprotein (LDL) cholesterol measurement (mass/volume)on 04-09-2022 Cholesterol in LDL [Mass/Vol] 196 mg/dL 0-130 [facility] Work Phone: Whole blood hemoglobin A1c/t otal hemoglobin ratio (mass fraction)on 04-09-2022 HbA1c (Bld) [Mass fraction] 5.7 % 3.8-5.6 [facility] Work Phone: Comment on above: Normal < 5.7 % Predi abetic 5.7 - 6.4 % Diabetic >or= 6.5 % Please note range changes. DHEASon 11-02-2021 DHEA-SO4 68.28 mcg/dL Normal 25.90-460. 20 [facility] ([place]) Comment on above: Result Comment: No te - New Reference Range in effect 19 Performed By: #### F T3 #### [place] [id number] #### E2, PROG, TESTO, DHEAS #### [place] [address] E2on 11-02-2021 Estradiol Level 65.96 pg/mL Normal [facility] ([place]) Comment on above: Result Comment: No te - New Reference Range in effect 19 Adult Female E2 Reference Ranges: Follicular phase 19.5 - 144.2 pg/mL Midcycle 63.9 - 356.7 pg/mL Luteal phase 55.8 - 214.2 pg/mL Post menopausal 0 - 33.2 pg/mL Performed By: #### F T3 #### [place] [id number] #### E2, PROG, TESTO, DHEAS #### [address] [address] FT3on 11-02-2021 Free T3 [Mass/Vol] 2.40 pg/mL Normal 2.30-4.00 [facility] ([place]) Comment on above: Performed By: #### F T3 #### [address] [address] #### E2, PROG, TESTO, DHEAS #### [address] [address] LABORATORYOrdered By: SYSTEM SYSTEM on 11-02-2021 DHEA-S [Mass/Vol] 68.28 ug/dL Invalid Interpretation Code 25.90 - 460.20 mcg/dL ADM SS E2 [Mass/Vol] 65.96 pg/mL Invalid Interpretation Code ADM SS Progesterone [Mass/Vol] ng/mL Invalid Interpretation Code ADM SS Testosterone [Mass/Vol] 212.44 ng/dL Invalid Interpretation Code ADM SS LABORATORYOrdered By: Cristiano Fernandez on 11-02-2021 Free T3 [Mass/Vol] 2.40 pg/mL Invalid Interpretation Code 2.30 - 4.00 pg/mL AO ADM SS PROGon 11-02-2021 Progesterone Level <0.2 Normal [facility] ([place]) Comment on above: Result Comment: Adul t Female Progesterone Reference Ranges: Follicular phase <0.21 - 1.40 ng/mL Luteal phase 3.34 - 25.56 ng/mL Mid-Luteal phase 4.44 - 28.03 ng/mL Postmenopausal <0.21 - 0.73 ng/ml Female: First trimester 11.22 - 90.00 ng/ml Second trimester 25.55 - 89.40 ng/ml Third trimester 48.40 - 422.50 ng/ml Performed By: #### F T3 #### [address] [address] #### E2, PROG, TESTO, DHEAS #### [place] [address] TESTOon 11-02-2021 Testosterone Lvl 212.44 ng/dL Normal [facility] ([place]) Comment on above: Result Comment: Norm al Reference Ranges for Females: Female Premenopause Age 21-60 9.01-47.94 ng/dL Female Postmenopause Age 45-89 <7.00-45.62 ng/dL Performed By: #### F T3 #### [address] [address] #### E2, PROG, TESTO, DHEAS #### [address] [address] Vital Signs Date Time Vital Sign Value Performing Clinician Oscar mcneil 10-15-2024 08:07-0400 Body height 154.[address] Richelle Escalante DO Work Phone: [facility] 10-15-2024 08:00-0400 Body mass index (BMI) [Ratio] 30.2 kg/m2 Dr. Richelle Escalante DO Work Phone: [facility] 10-15-2024 08:00-0400 Body weight 72.[address] Richelle Escalante DO Work Phone: [facility] 10-15-2024 08:00-0400 Diastolic blood pressure 84 mm[Hg] Dr. Richelle Escalante DO Work Phone: [facility] 10-15-2024 08:00-0400 Systolic blood pressure 127 mm[Hg] Dr. Richelle Escalante DO Work Phone: [facility] 11-21-2022 09:55-0400 Body temperature 97.5 [degF] Dr. Richelle Escalante Work Phone: [facility] 11-21-2022 09:55-0400 Diastolic blood pressure 96 mm[Hg] Dr. Richelle Escalatne Work Phone: [facility] 11-21-2022 09:55-0400 Heart rate 68 /min Dr. Richelle Escalante Work Phone: [facility] 11-21-2022 09:55-0400 Respiratory rate 18 /min Dr. Richelle Escalante Work Phone: [facility] 11-21-2022 09:55-0400 SaO2% (BldA) [Mass fraction] 94 % Dr. Richelle Escalante Work Phone: [facility] 11-21-2022 09:55-0400 Systolic blood pressure 147 mm[Hg] Dr. Richelle Escalante Work Phone: [facility] 11-21-2022 09:33-0400 Inhaled oxygen flow rate 2 L/min Dr. Richelle Escalante Work Phone: [facility] 11-21-2022 08:12-0400 Body height 154.[address] Richelle Escalante Work Phone: [facility] 11-21-2022 08:12-0400 Body mass index (BMI) [Ratio] 29.9 kg/m2 Dr. Richelle Escalante Work Phone: [facility] 11-21-2022 08:12-0400 Body weight [address] Richelle Escalante Work Phone: [facility] 09-05-2022 15:27-0400 Body mass index (BMI) [Ratio] 30.4 kg/m2 Dr. Richelle Escalante Work Phone: [facility] 09-05-2022 15:27-0400 Body weight 73.[address] Richelle Escalante Work Phone: [facility] 09-05-2022 15:27-0400 Diastolic blood pressure 86 mm[Hg] Dr. Richelle Escalante Work Phone: [facility] 09-05-2022 15:27-0400 Heart rate 66 /min Dr. Richelle Escalante Work Phone: [facility] 09-05-2022 15:27-0400 SaO2% (BldA) [Mass fraction] 95 % Dr. Richelle Escalante Work Phone: [facility] 09-05-2022 15:27-0400 Systolic blood pressure 131 mm[Hg] Dr. Richelle Escalante Work Phone: [facility] 08-22-2022 08:58-0400 Body height 154.[address] Richelle Escalante Work Phone: [facility] 08-22-2022 08:58-0400 Body mass index (BMI) [Ratio] 30.1 kg/m2 Dr. Richelle Escalante Work Phone: [facility] 08-22-2022 08:58-0400 Body weight 72.[address] Richelle Escalante Work Phone: [facility] 08-22-2022 08:58-0400 Diastolic blood pressure 86 mm[Hg] Dr. Richelle Escalante Work Phone: [facility] 08-22-2022 08:58-0400 Systolic blood pressure 130 mm[Hg] Dr. Richelle Escalante Work Phone: [facility] 04-09-2022 08:06-0400 Body height 154.[address] Richelle Escalante Work Phone: [facility] Work Phone: 04-09-2022 08:06-0400 Body mass index (BMI) [Ratio] 29.5 kg/m2 Dr. Richelle Escalante Work Phone: [facility] Work Phone: 04-09-2022 08:06-0400 Body weight 70.[address] Richelle Escalante Work Phone: [facility] Work Phone: 04-09-2022 08:06-0400 Diastolic blood pressure 77 mm[Hg] Dr. Richelle Escalante Work Phone: [facility] Work Phone: 04-09-2022 08:06-0400 Systolic blood pressure 116 mm[Hg] Dr. Richelle Escalante Work Phone: [facility] Work Phone: Encounters Encounter Date Encounter Type Care Provider Facility Start: 10-15-2024 End: 10-15-[address] Richelle Escalante DO Work Phone: [facility] Work Phone: Start: 10-15-2024 End: 10-15-[address] Graciela Almazan MD -Laboratory, Specimen Work Phone: Start: 10-15-2024 End: 10-15-[address] Graciela Almazan [place] Work Phone: Start: 10-15-2024 End: 10-15-[address] Graciela Almazan MD [facility] Start: 10-15-2024 End: 10-15-2024 ambulatory Richelle Malbahman Facility:[facility] Start: 10-15-2024 End: 10-15-2024 [facility] Start: 09-20-2024 End: 09-20-2024 ambulatory AUGUSTIN John INIGUEZYOLA Facility:[facility] Start: 06-18-2024 ambulatory Brianyvette Estrada Facility :[facility] Start: 06-18-2024 End: 06-18-2024 ambulatory Richelle Malys Facility:[facility] Start: 05-28-2024 End: 05-28-2024 ambulatory Richelle Boris Facility:[facility] Start: 11-21-2022 Non-patient / Non-visit Dr. Richelle Escalante Work Phone: [facility] Start: 11-21-2022 End: 11-21-2022 Admission to same day surgery center Dr. Richelle Escalante Work Phone: [facility] Start: 11-21-2022 End: 11-21-[address] Richelle Escalante Work Phone: [facility] Work Phone: Start: 09-05-2022 End: 09-05-[address] Richelle Escalante Work Phone: [facility] Start: 08-22-2022 End: 08-22-[address] Richelle Escalante Work Phone: [facility] Work Phone: Start: 08-22-2022 End: 08-22-[address] Richelle Escalante Work Phone: [facility] Start: 04-09-2022 End: 04-09-[address] Richelle Escalante Work Phone: [facility] Work Phone: Start: 04-09-2022 End: 04-09-[address] Richelle Escalante Work Phone: [facility] Start: 11-02-2021 End: 11-02-2021 Patient encounter procedure AUGUSTIN Lowe NADIYA DO [facility] Start: 08-02-[address] Richelle Escalante Work Phone: [facility] Procedures Date Procedure Procedure Detail Performing Clinician Start: 10-15-2024 Gram stain microscopy Juanjo Escalante DO Work Phone: Start: 10-15-[address] Richelle Escalante DO Work Phone: Start: 11-21-[address] Richelle Escalante Work Phone: Start: 08-22-2022 Screening mammography Juanjo Escalante Work Phone: Plan of Treatment Date Care Activity Detail Author Start: 02-11-2025 ambulatory Ambulatory Facility:[facility] Start: 11-21-2022 Patient discharge [facility] MG Breast - bilatera l Screening [facility] Patient referral [facility] Work Phone: Payers Date Payer Category Payer Unknown [id number] 2024 Self-pay [id number] 2024 Unknown [id number] 2010 Unknown [facility] [id number] 1960 Unknown [id number] 2.16.8 [id number] Unknown [facility] [employer] [id number] Unknown [id number] 2.16.8 [id number] Unknown [id number] 2.16.8 [id number] Unknown [id number] 2.16.8 [id number] Unknown [id number] 2.16.8 [id number] Unknown [id number] 2.16.8 [id number] Unknown [id number] 2.16.8 [id number] Unknown [id number] 2.16.8 [id number] Social History Date Type Detail Facility Start: 04-09-2022 End: 11-18-2022 Tobacco smoking status NHIS Unknown if ever smoked [facility] Start: 1960 Sex Assigned At Female [facility] Start: 10-15-2024 Tobacco smoking status NHIS Never smoked tobacco (finding) [facility] NEGATED: Highlighted row [facility] Goals Date Patient Goal Desired Activity /State Mental Status Date Assessment Result Facility 11-21-2022 Cognitive function Voice/Name;Touch/Carlos parra [facility] Work Phone: Clinical Notes 11-21-2022 to 10-15-2024 Note Date & Type Note Facility 10-15-2024 Evaluation note Diagnosis Onset Date Resolution Vaginal discharge acute October 7:52am Encounter for routine gynecological examination noneactive October 15, 2024 7: 52am [facility] Work Phone: 1(183) 523-496301-10-2025 [facility] Medical Records Department [address] [place] [address] History Physical Exam 06/18/24 0636 MR#: [id number] Acct: [id number] Name: GSUTAVO SOLORZANO Rep #: [id number] : 1960 63 From: Brian Friend DO PCP: Dr. Richelle Escalante, DO Status:REG SDC Location: [place] [address] HPI - General General Date of Admission: 06/18/24 Date of Service: 06/18/24 Chief Complaint: dysphagia HPI Narrative HPI Chief Complaint: dysphagia Details: GUSTAVO SOLORZANO, is a 63 F who presents to the office today for follow up. *BGI established .01.27 with dysphagia for 2-3 years. Previously established with Dr. Pino who she reports performed EGD with dilation. ? EGD and colonoscopy 04.30.21 EGD moderate Schatzki ring,Savary 60F; LA Grade A esophagitis; umbilicate submucosal lesion 10mm of gastric antrum, pancreatic rest. ? Colonoscopy without visual abnormality. OV 12.10.21 with dysphagia resolution. Increased amount of pain following EGD but this has resolved. Newly reports constipation. OV 3.30.23 chronic constipation an issue with desire to use zuPoo EGD 6.15.23 esophageal changes consistent with EOE, >20 eosin/field; Schatzki ring, Savary 60F; esophageal diverticulum; umbilicated submucosal lesion 5mm of gastric antrum, pancreatic rest. ? Biochemical CBC, ESR, RAST, IgAM without pertinent abnorm ality.? CRP H4.84, IgG H1661, IgE L5 OV 08.01.23 for the last two months she has been having difficulty swallowing. Protonix continues. OV 05.28.24 pt reports continued difficulty swallowing and states that she may need her esophagus dilated again. Reports this has been helpful in the past. [facility] Medical History PONV (postoperative nausea and vomiting) Non-smoker Wears glasses Post-menopausal History of hiatal hernia Gastric reflux Thyroid disease Goiter Home Medications ???Medication ???Instructions ???Recorded ???Last Taken ???Type levothyroxine 100 mcg tablet 100 mcg PO DAILY #90 tabs 05/10/19 11/21/22 Rx liothyronine 5 mcg tablet 5 mcg PO BID 11/21/22 11/21/22 History Allergy/AdvReac Type Severity Reaction Status Date / Time No Known Allergies Allergy Verified 06/18/24 05:47 Family History Mother Arthritis Lung cancer Father Esophageal cancer Other OSTEOPEROSIS Surgical History History of colonoscopy History of esophagogastroduodenoscopy (EGD) Hx of tonsillectomy Social History Smoking Status: Never smoker alcohol intake: never substance use type: does not use caffeine: Yes what type of physical activity do you participate in: walking and weight training frequency: 3-4 times per week seatbelt use: always do you feel safe at home: Yes additional social history: -Karri ROS Constitutional Constitutional: Denies fatigue, fever(s), poor appetite, weight gain or weight loss Gastrointestinal Gastrointestinal: Denies belching, bloating, change in bowel habits, change in stool character, chewing difficulty, coffee ground emesis, constipation, cramping, diarrhea, dyspepsia, dysphagia, early satiety, excessive flatus, fecal incontinence, heartburn, hematemesis, hematochezia, hemorrhoids, loose stools, melena, nausea, odynophagia, rectal bleeding, tenesmus, vomiting or weight changes Vital Signs Vital Signs Vital Signs: 06/18/24 05:49 06/18/24 05:49 06/18/24 06:32 Temperature 98 F 98 F Temperature Source Temporal Pulse Rate 97 97 Respiratory Rate 16 16 Respiratory Pattern Normal Blood Pressure 119/81 H 119/81 H Blood Pressure Mean 93 Blood Pressure Source Monitor Blood Pressure Position Semi-Fowlers Blood Pressure Location Left Arm Pulse Ox 97 97 Oxygen Delivery Method Room Air Room Air Weight Weight: 158 lb 11.725 oz Body Mass Index (BMI) 29.9 Physical Exam Const alert, oriented x3, no apparent distress and healthy appearing General Appearance: cooperative GI normal to inspection, nondistended, normoactive bowel sounds, soft to palpation, non-tender and non- distended Percussion: normal to percussion Rectal Exam: deferred Assessment Plan Assessment/Plan (1) Eosinophilic esophagitis: PLAN: Assessment and Plan Assessment and Plan (1) Eosinophilic esophagitis: Status: Chronic (2) Dysphagia: Status: Chronic Plan: Secondary to hiatal hernia and multiple esophageal rings. Biopsies were negative for eosinophilic esophagitis. (more content not included)...[facility]06-15-[address] [facility] No data available for this section [facility] Evaluation note* Diagnosis Onset Date Resolution Status Female climacteric state acu te [facility] Work Phone: Evaluation note* Diagnosis Onset Date Resolution Status Encounter for routine gynecological examination noneactive [facility] Work Phone: Evaluation note* Diagnosis Onset Date Resolution Status Encounter for routine gynecological examination noneactive Dysphagia acute Gastric reflux chronic [facility] Work Phone: History and physical note Author Brian Friend [facility] November 21, 2022 9:07am Note Date/Time November 21, 2022 9:07 am [facility] Medical Records Department [address] [place], [place] [address] [address] History & Physical Exam 11/21/22 0907 MR#: [id number] Acct: [id number] Name: GUSTAVO SOLORZANO Rep #:[id number] : 1960 62 From: Brian Friend DO PCP: Dr. Richelle Escalante, DO Status[facility] Location: [place] [address] History and Physical Date of Admission: 11/21/22 dysphagia Details: GUSTAVO SOLORZANO, is a 62 F who presents to the office today for recurrence of dysphagia. Previous difficulty swallowing was treated effectively with dilation of moderate Schatzki ring in 04/2021. EGD showed single pancreatic rest in stomach then. She takes pantoprazole 40 mg daily. Only has heartburn if she forgets PPI.Has chronic constipation, doesn't want to take miralax, asks about zuPoo. No abdpain. No melena or hematochezia. No nausea, vomiting. EGD and colonoscopy performed 04/30/21: EGD ? moderate Schatzki ring, dilated. LA Grade A reflux esophagitis. Single lesion diagnostic of aberrant pancreas in stomach. Biopsy - Distal esophagus moderate chronic inflammation without metaplasia. Pancreatic rest, mild gastritis. Colonoscopy ? Diverticulosis in sigmoid and descending colon. No specimens collected. ROS Const Constitutional: No fatigue ENT ENT: Positive for difficulty swallowing Gastro GI: Positive for difficulty swallowing; No abdominal pain, belching, bloating, change in bowel habits, change in stool character, coffee ground emesis, constipation, cramping, diarrhea, heartburn, feeling full early, excessive flatus, incontinent of stools, Vomiting blood/hematemesis, Blood in stool, loose stools, Black,tarry stools, nausea/dyspepsia, pain with swallowing, vomiting or other Musc Musculoskeletal: No joint pain Skin Skin: No yellowing of the eye or itchy eyes Psych Psychiatric: No anxiety and No depression Endo Endocrine: No fatigue Aller/Imm Allergy/Immunologic: No itchy eyes Michael/Lymp Hematologic/Lymphatic: No easy bleeding or easy bruising Exam Const General: cooperative, healthy appearing and comfortable Orientation: alert, awake and oriented x3 Quality Reporting Tobacco Screening ([facility] 138) Smoking Status: Never smoker Assessment and Plan Assessment and Plan (1) Dysphagia: ?Status:?Acute ?Plan: 62 yo female with dysphagia, hx schatzki ring, gerd. Get EGD. Continue pantoprazole 40 mg daily. (2) Gastric reflux: ?Status:?Chronic ?Plan: see above I have examined the patient and the H&P has been reviewed. There are no clinicalchanges since date of exam. 11/21/22 0907 <Electronically signed by Brian Estrada DO> Cosigner Signature (if applicable): CC: Dr. Richelle Escalante DO; Brian Estrada, ~ Signed [facility] Work Phone: Hospital Discharge instructions No data available for this section [facility] Progress note No data available for this section [facility] Reason for referral (narrative)No reason for referral information availableWKettering [facility] Work Phone: Summary Purpose Family History No Family History Records Found Relationship Condition Age at Onset Recorded Date/T vincenzo Not Specified Unknown mother Arthritis Unknown Malignant neoplasm of lung Unknown father Malignant neoplasm of esophagus Unknown Advance Directives No Advanced Directives Records Found Advance Directive Response Recorded Date/ Time Living Will No March 19 8:04am Power of Surgery Manager No March 19, 2022 8:04am Advance Directive Response Recorded Date/ Time Living Will No March 19 9:04am Power of Surgery Manager No March 19, 2022 9:04am Advance Directive Response Recorded Date/ Time Living Will No November 18, 2022 4:17pm Power of Surgery Manager No November 18 4:17pm Chief Complaint and Reason for Visit Chief Complaint 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 Reason for Visit Female climacteric s trujillo Chief Complaint 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 Samia La MD Family Provider Active Dr. Richelle Malys , DO Primary Care Provider Active Team Status: Inactive Member Role Status Dates Dr. Richelle Escalante DO Primary Care Provider, Referring P rovider Active Dr. Wendie Calvo , DO Attending Provider Activ e Team Status: Inactive Member Role Status Dates Dr. Richelle Escalante DO Primary Care Provider Active Dr. Wendie Calvo , DO Attending Provider, Refe rring Provider Active Team Status: Inactive Member Role Status Dates Dr. Richelle Escalante DO Primary Care Provider, Referring P rovider Active Marcella Meade AIRPORT MAINTENANCE CHIEF, AIRPORT MAINTENANCE CHIEF-C Attending Provider Active Team Status: Active Member Role Status Dates Dr. Richelle Escalante DO Primary Care Provider, Referring P rovider Active Dr. Brian Estrada , DO Attending Provider, Other Prov ider Active Team Status: Inactive Member Role Status Dates Dr. Richelle Escalante DO Primary Care Provider, Referring P rovider Active Dr. Brian Estrada , DO Attending Provider Active Team Status: Active Member Role Status Dates Dr. Richelle Escalante DO Primary Care Provider Active Team Status: Inactive Member Role Status Dates Dr. Richelle Escalante DO Primary Care Provider Active Start: October 15, 2024 End: October 15, 2024 Dr. Richelle Escalante DO Referring Provider Active St art: October 15, 2024 End: October 15, 2024 Dr. Graciela Almazan MD Attending Provider Active Start: October 15, 2024 End: October 15, 2024 Team Status: Inactive Member Role Status Dates Dr. Richelle Escalante DO Primary Care Provider Active Start: October 15, 2024 End: October 15, 2024 Dr. Graciela Almazan MD Attending Provider Active Start: October 15, 2024 End: October 15, 2024 Dr. Graciela Almazan MD Referring Provider Active Start: October 15, 2024 End: October 15, 2024 INFORMATION SOURCE (unrecogn ized section and content) DATE CREATED AUTHOR 11/03/2021 [facility] ([place]) DATE CREATED AUTHOR AUTHOR'S ORGANIZ ATION 09/22/2024 [facility] DATE CREATED AUTHOR AUTHOR'S ORGANIZ ATION 01/22/2025 [facility] Goals (unrecognized section and content) Goals may be documented in a n alternate section FOR RECORDS PERTAINING TO PATIENTS WHO ARE OR HAVE BEEN ENROLLED IN A CHEMICAL DEPENDENCY/SUBSTANCEABUSE PROGRAM, SOME INFORMATION MAY BE OMITTED. This clinical summary was aggregated from multiple sources. Caution should be exercised in using it in the provision of clinical care. This summary normalizes information from multiple sources, and as a consequence, information in this document may materially change the coding, format and clinical context of patient data. In addition, data may be omitted in some cases. CLINICAL DECISIONS SHOULD BE BASED ON THE PRIMARY CLINICAL RECORDS. [facility]. provides no warranty or guarantee of the accuracy or completeness of information in this document.
[2025-02-11] MEDS: Lactated Ringers 1,000 ML 15 ML IV (06:38)
--- NOTE | 2025-02-11 06:44 | PRE.ANES_ITS ---
ASA Classification* ASA Classification ASA Classification: 2 Assessment & Plan Anesthesia* Anesthesia Assessment Anesthesia Assessment: Discussed sedation and/or anesthesia options, risks, benefits, and alternatives with patient/parents/legal guardian/POA. Questions invited. The patient/parents/legal guardian/POA seems to understand and agrees to proceed with anesthesia plan. Reviewed the physical assessment, medical history, allergy history and patient home medications list prior to surgery/procedure/anesthetic and documented any changes. Performed airway and anesthesia risk assessments. Anesthesia Type Anesthesia Type: MAC History Source History Obtained from:: Patient and Chart Anesthesia Focused Assessment* Temperature: 97.0 F Pulse Rate: 70 Blood Pressure: 138/84 Respiratory Rate: 20 Pulse Ox: 98 Oxygen Delivery Method: Room Air Airway Assessment Mouth opens: >3 cm Mallampati Score: III Teeth Condition: Caps/Crowns (Patient patient has a crown. It is tight.) and Missing (Patient has a missing tooth. The rest are tight.) Neck Range of motion (ROM): Full ROM Labs Anesthesia Preop lab: CBC WBC 7.3 K/mm3 (4.4-11.0) 09/06/23 11:51 09/06/23 RBC 4.35 M/mm3 (4.2-5.4) 09/06/23 11:51 09/06/23 Hgb 13.0 g/dL (12.0-15.0) 09/06/23 11:51 09/06/23 Hct 39.6 % (37-47) 09/06/23 11:51 09/06/23 Plt Count K/mm3 (150-450) 09/06/23 11:51 09/06/23 CHEMISTRY Potassium 3.7 mmol/L (3.5-5.1) 09/06/23 11:51 09/06/23 Sodium 138 mmol/L (136-145) 09/06/23 11:51 09/06/23 BUN 18 mg/dL (7-18) 09/06/23 11:51 09/06/23 Creatinine 0.94 mg/dL (0.55-1.02) 09/06/23 11:51 09/06/23 Glucose 91 mg/dL (74-106) 09/06/23 11:51 09/06/23 TSH 1.73 uIU/mL (0.358-3.74) 09/06/23 11:51 COAG Pre-Assessment Diagnosis/Proposed Procedure Planned Operative Procedure(s): EGD Anesthesia History 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 When Was Last Pacemaker Check QUESTION #4 FULL TEXT: You/Your Family Experience fever (hyperthermia) with Anesthesia Last Oral Intake Last Oral intake: Last Oral Intake NPO since 00:00 02/11/25 06:29 Meds taken in AM with sips of water? Meds patient instructed to take am of surgery Any additional information?: Yes Meds taken in AM with sips of water?: No PONV PONV - biomedical equipment technician: PONV - biomedical equipment technician Female Yes 02/10/25 13:44 HX of Motion Sickness No 02/10/25 13:44 HX of N/V After Surgery No 02/10/25 13:44 Non-Smoker Yes 02/10/25 13:44 Duration of Surgery greater No 02/10/25 13:44 than 60 minutes Number of Risk Factors 2 02/10/25 13:44 PONV Score Moderate Risk 02/10/25 13:44 Height & Weight Height & Weight: Anesthesia: Height & Weight Height 5 ft 1 in 02/11/25 06:29 Weight: 72 kg 02/11/25 06:29 Body Mass Index (BMI) 29.9 02/11/25 06:29 Respiratory Assessment Respiratory Assessment - biomedical equipment technician: Respiratory Tract Infection Hx - biomedical equipment technician Hx Respiratory Tract Infection No 02/10/25 13:44 Any additional information?: Yes Hx Respiratory Tract Infection: Yes (Slight cold and cough.) STOP Sleep Apnea STOP Sleep Apnea - biomedical equipment technician: STOP Sleep Apnea - biomedical equipment technician Hx Hypertension No 02/10/25 13:44 Hx Sleep Apnea No 02/10/25 13:44 CPAP BIPAP Do you snore loudly (louder Yes 02/10/25 13:44 than talking or can be heard Do you often feel tired/ No 02/10/25 13:44 fatigued/ sleepy during daytime? Has anyone observed you stop No 02/10/25 13:44 breathing during sleep? STOP Results Negative 02/10/25 13:44 QUESTION #5 FULL TEXT : Do you snore loudly (louder than talking or can be heard through closed doors)? 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 Specify any problems Hx of Preganancy in last 3 No 02/10/25 13:44 Months Nurse Filling Out Transfusion DSCHRIBER 02/10/25 13:44 & Questions: Date: 02/10/25 02/10/25 13:44 Time: 13:46 02/10/25 13:44 Patient unable to answer at this time (ie. confused, unrespo /Reproduction History /Reproductive History - biomedical equipment technician: /Reproductive Hx- biomedical equipment technician Hx Now No 02/10/25 13:44 Gestational Age (in weeks): EDC: Hx Hx Para Hx Section SAB No 02/10/25 13:44 Active Medications Active Medications: Current Medications Generic Name Dose Route Start Last Admin Trade Name Freq PRN Reason Stop Dose Admin Lactated Ringer's 1,000 mls @ 15 mls/hr 02/11/25 06:15 02/11/25 06:38 IV 15 mls/hr .Q48H TERRY Administration PFSH Medical History Low iron PONV (postoperative nausea and vomiting) Non-smoker Wears glasses Post-menopausal History of hiatal hernia Gastric reflux Thyroid disease Goiter Home Medications ?Medication ?Instructions ?Recorded ?Last Taken ?Type pantoprazole 40 mg tablet,delayed 40 mg PO QDAY #60 ta bs 06/25/24 02/10/25 Rx release progesterone micronized 100 mg 100 mg PO QAM 10/15/24 Unknown History capsule thyroid (pork) 15 mg tablet 15 mg PO QDAY 10/15/2410/01 History ([place] Thyroid) testosterone 1.62 % (20.25 mg/1.25 1 packet transderma l QHS 02/10/25 Unknown History gram) transdermal gel packet Allergy/AdvReac Type Severity Reaction Status Date / Time No Known Allergies Allergy Verified 02/11/25 06:29 Family History Mother Arthritis Lung cancer Father Esophageal cancer Other OSTEOPEROSIS Surgical History History of colonoscopy History of esophagogastroduodenoscopy (EGD) Hx of tonsillectomy Social History number of children: 2 Smoking Status: Never smoker alcohol intake: never substance use type: does not use caffeine: Yes what type of physical activity do you participate in: walking and weight training frequency: 3-4 times per week seatbelt use: always do you feel safe at home: Yes additional social history: -Karri Review of Systems (Anesthesia) ROS Narrative System reviewed and no additional complaints, except as documented.
--- NOTE | 2025-02-11 06:48 | HP.PCM_ITS ---
HPI - General General Date of Admission: 02/11/25 Date of Service: 02/11/25 Chief Complaint: dysphagia HPI Narrative GUSTAVO SOLORZANO, is a 64 F who presents with the Chief Complaint: dysphagia *BGI established 04.16.21 with dysphagia for 2-3 years. Previously established with Dr. Pino who she reports performed EGD with dilation. ? EGD and colonoscopy 04.30.21 EGD moderate Schatzki ring, Savary 62F; LA Grade A esophagitis; umbilicate submucosal lesion 10mm of gastric antrum, pancreatic rest. ? Colonoscopy without visual abnormality. OV 12.. with dysphagia resolution. Increased amount of pain following EGD but this has resolved. Newly reports constipation. OV 3.30.23 chronic constipation an issue with desire to use zuPoo EGD 6.. esophageal changes consistent with EOE, >20 eosin/field; Schatzki ring, Savary 62F; esophageal diverticulum; umbilicated submucosal lesion 5mm of gastric antrum, pancreatic rest. ? Biochemical CBC, ESR, RAST, IgAM without pertinent abnormality.? CRP H4.84, IgG H1661, IgE L5 OV 2.23.24 for the last two months she has been having difficulty swallowing. Protonix continues. OV 12.20.24 pt reports continued difficulty swallowing and states that she may need her esophagus dilated again. Reports this has been helpful in the past. Assessment & Plan Assessment/Plan (1) Eosinophilic esophagitis: PLAN: [facility] Medical History Low iron PONV (postoperative nausea and vomiting) Non-smoker Wears glasses Post-menopausal History of hiatal hernia Gastric reflux Thyroid disease Goiter Home Medications ?Medication ?Instructions ?Recorded ?Last Taken ?Type pantoprazole 40 mg tablet,delayed 40 mg PO QDAY #60 ta bs 06/25/24 02/10/25 Rx release progesterone micronized 100 mg 100 mg PO QAM 10/15/24 Unknown History capsule thyroid (pork) 15 mg tablet 15 mg PO QDAY 10/15/2410/01 History ([place] Thyroid) testosterone 1.62 % (20.25 mg/1.25 1 packet transderma l QHS 02/10/25 Unknown History gram) transdermal gel packet Allergy/AdvReac Type Severity Reaction Status Date / Time No Known Allergies Allergy Verified 02/11/25 06:29 Family History Mother Arthritis Lung cancer Father Esophageal cancer Other OSTEOPEROSIS Surgical History History of colonoscopy History of esophagogastroduodenoscopy (EGD) Hx of tonsillectomy Social History number of children: 2 Smoking Status: Never smoker alcohol intake: never substance use type: does not use caffeine: Yes what type of physical activity do you participate in: walking and weight training frequency: 3-4 times per week seatbelt use: always do you feel safe at home: Yes additional social history: -Karri ROS Constitutional Constitutional: Denies fatigue, fever(s), poor appetite, weight gain or weight loss Gastrointestinal Gastrointestinal: Denies belching, bloating, change in bowel habits, change in stool character, chewing difficulty, coffee ground emesis, constipation, cramping, diarrhea, dyspepsia, dysphagia, early satiety, excessive flatus, fecal incontinence, heartburn, hematemesis, hematochezia, hemorrhoids, loose stools, melena, nausea, odynophagia, rectal bleeding, tenesmus, vomiting or weight changes Vital Signs Vital Signs Vital Signs: 02/11/25 06:29 02/11/25 06:29 Temperature 97.0 F L Temperature Source Temporal Pulse Rate 70 Respiratory Rate 20 H Respiratory Pattern Normal Blood Pressure 138/84 H Blood Pressure Mean 102 Blood Pressure Source Monitor Blood Pressure Position Semi-Fowlers Blood Pressure Location Left Arm Pulse Ox 98 Oxygen Delivery Method Room Air Weight Weight: 158 lb 11.725 oz Body Mass Index (BMI) 29.9 Physical Exam Const alert, oriented x3, no apparent distress and healthy appearing General Appearance: cooperative GI normal to inspection, nondistended, normoactive bowel sounds, soft to palpation, non-tender and non-distended Percussion: normal to percussion Rectal Exam: deferred Assessment & Plan Assessment/Plan (1) Eosinophilic esophagitis: PLAN: Assessment and Plan (1) Eosinophilic esophagitis: Status: Chronic (2) Dysphagia: Status: Chronic Plan: Secondary to hiatal hernia and multiple esophageal rings. Biopsies were negative for eosinophilic esophagitis. She stopped her PPI therapy because she saw a new homeopathic doctor and her symptoms of dysphagia come back. Will perform another upper endoscopy with dilation in we will restart her back on PPI once a day today.
--- NOTE | 2025-02-11 07:00 | EGD_PTH ---
PATIENT: GUSTAVO SOLORZANO LOC: [facility] U#:[id number] AGE/SX: 64/F ROOM: RE02/11/[address]: Dr. Brian Estrada DO : 1960 BED: DIS: 02/11/2025 SPEC #: [id number] RECD: 02/11/25 07:47 STATUS: JUSTO RADHA #: [id number] OMER: 02/11/25 07:[address]: Brian Estrada DEPT: SURGICAL PATHOLOGY RECD BY: Chandler Mahmood ENTERED: 02/11/25 11:32 SP TYPE: EGD BIOPSY GERALDO DR: Dr. Richelle Escalante DO Tissues: A - Esophagus, NOS Procedures: Special Stain Group I Surgery Specimen Level IV GMS Stain (control) HEADER OPERATION: EGD, biopsy, dilation PRE-OP DIAGNOSIS: Eosinophilic esophagitis TISSUE SUBMITTED: A- Distal esophagus biopsy MICROSCOPIC DIAGNOSIS A. Distal esophagus, biopsy: - Squamous mucosa with marked reactive changes, acute inflammation, and > 40 eosinophils per high power field. - Scant columnar mucosa negative for goblet cell metaplasia. - PASD stain for fungal organisms is PENDING and will be reported in an addendum. MICROSCOPIC DESCRIPTION Slides are reviewed. GROSS DESCRIPTION A. Received in fixative is one container labeled with the patient's name and designated Distal esophagus biopsy. The specimen consists of four irregular fragments of light lombardi soft tissue that measure 0.2 to 0.6 cm. The specimen is totally submitted in one cassette. MO 02/11/2025 [facility]:[id number] ADDENDUM ADDENDUM ADDENDUM ADDENDUM ADDENDUM ADDENDUM ADDENDUM ADDENDUM ADDENDUM ADDENDUM ADDENDUM 02/21/2025 15:10 ADDENDUM 02/21/2025 15:10 ADDENDUM 02/21/2025 15:10 ADDENDUM 02/21/2025 15:10 ADDENDUM 02/21/2025 15:10 This addendum is to report the findings of the PASD special stain: The PASD stain is negative for fungal organisms. All matched controls reacted appropriately. These tests were developed and their performance characteristics determined by [facility]. They may not have been cleared or approved by the U.S. Food and Drug Administration. The FDA has determined that such clearance or approval is not necessary.? The above immunohistochemical?markers and/or special stains have been reviewed by the Pathologist
--- NOTE | 2025-02-11 07:23 | OP.PROVAT_ITS ---
02/11/2025 Richelle Escalante [address] [place] [address] Re : Upper GI endoscopy procedure for Imelda García Dear Dr. Escalante This procedure was performed on Tuesday, February 11, 2025. My impressions and recommendations are as follows: Impressions : - Esophageal mucosal changes secondary to eosinophilic esophagitis. Biopsied. Dilated. - Medium-sized hiatal hernia. - No gross lesions in the entire examined duodenum. Recommendations : - Discharge patient to home. - Resume previous diet. - Continue present medications. - Await pathology results. My findings are described in the full procedure note, which is enclosed. If I can be of further assistance, please feel free to contact me at . Sincerely, Brian Friend, 02/11/2025 7:22:13 AM This report has been signed electronically.
--- NOTE | 2025-02-11 07:23 | OP.EGD_ITS ---
Patient Name: Imelda García Procedure Date: 02/11/2025 6:45 AM Date of : 1960 Age: 64 Procedure: Upper GI endoscopy Indications: Dysphagia Providers: Brian Estrada DO Medicines: Monitored Anesthesia Care Patient Profile: This is a 64 year old female. Refer to note in patient chart for documentation of history and physical. Patient has symptoms of dysphagia with solids. Her most recent EGD for dilation was one year ago. Complications: No immediate complications. Procedure: Pre-Anesthesia Assessment: - Prior to the procedure, a History and Physical was performed, and patient medications and allergies were reviewed. The patient is competent. The risks and benefits of the procedure and the sedation options and risks were discussed with the patient. All questions were answered and informed consent was obtained. Patient identification and proposed procedure were verified by the physician in the pre-procedure area. Mental Status Examination: alert and oriented. Airway Examination: normal oropharyngeal airway and neck mobility. Respiratory Examination: clear to auscultation. CV Examination: normal. Prophylactic Antibiotics: The patient does not require prophylactic antibiotics. Prior Anticoagulants: The patient has taken no anticoagulant or antiplatelet agents. ASA Grade Assessment: II - A patient with mild systemic disease. After reviewing the risks and benefits, the patient was deemed in satisfactory condition to undergo the procedure. The anesthesia plan was to use monitored anesthesia care (MAC). Immediately prior to administration of medications, the patient was re-assessed for adequacy to receive sedatives. The heart rate, respiratory rate, oxygen saturations, blood pressure, adequacy of pulmonary ventilation, and response to care were monitored throughout the procedure. The physical status of the patient was re-assessed after the procedure. After obtaining informed consent, the endoscope was passed under direct vision. Throughout the procedure, the patient's blood pressure, pulse, and oxygen saturations were monitored continuously. The gastroscope was introduced through the mouth, and advanced to the second part of duodenum. The upper GI endoscopy was accomplished without difficulty. The patient tolerated the procedure well. Scope In: 7:06:49 AM Scope Out: 7:12:47 AM Total Procedure Duration Time 0 hours 5 minutes 58 seconds Findings: Mucosal changes including ringed esophagus were found in the middle third of the esophagus and in the lower third of the esophagus. Biopsies were taken with a cold forceps for histology. Verification of patient identification for the specimen was done. Estimated blood loss was minimal. A guidewire was placed and the scope was withdrawn. Dilation was performed with a Savary dilator with no resistance at 60 Fr. The dilation site was examined and showed moderate improvement in luminal narrowing. Estimated blood loss was minimal. A medium-sized hiatal hernia was present. No gross lesions were noted in the entire examined duodenum. Impression: - Esophageal mucosal changes secondary to eosinophilic esophagitis. Biopsied. Dilated. - Medium-sized hiatal hernia. - No gross lesions in the entire examined duodenum. Recommendation: - Discharge patient to home. - Resume previous diet. - Continue present medications. - Await pathology results. Procedure Code(s): --- Professional --- 72663, Esophagogastroduodenoscopy, flexible, transoral; with insertion of guide wire followed by passage of dilator(s) through esophagus over guide wire 61472, 59,51, Esophagogastroduodenoscopy, flexible, transoral; with biopsy, single or multiple CPT copyright 2021 [employer]. All rights reserved. The codes documented in this report are preliminary and upon inspector repairer sandstone review may be revised to meet current compliance requirements. Brian Estrada DO 02/11/2025 7:22:13 AM This report has been signed electronically. Number of Addenda: 0 Note Initiated On: 02/11/2025 6:45 AM
--- NOTE | 2025-02-11 07:24 | PCM.POST.ANE ---
Anesthesia: Postop Eval I Current Vital Signs Temperature: 97.4 F Pulse Rate: 67 Blood Pressure: 134/82 Respiratory Rate: 16 Pulse Ox: 97 Oxygen Delivery Method: Room Air Assessment Airway patent: Yes Spontaneous unlabored respirations: Yes Mental status: Awake and Calm nausea: No Vomiting: No Anesthesia Complication: No Fluid Hydration Crystalloid volume administer (ml): 400 Total IV fluid infused: 400 Progress Note Anesthesia document: Postop Eval 1 completed: Yes
--- NOTE | 2025-02-11 14:16 | PCM.POSTANE2 ---
Anesthesia Postop Eval I Sum Postop Eval Completion status Anesthesia document: Postop Eval 1 completed: Yes Anesthesia Postop Eval I Summary Anesthesia Postop Eval I Summary: Anesthesia Postop Eval I: Assessment Summary Airway patent Yes 02/11/25 07:25 [email or web address] Spontaneous unlabored Yes 02/11/25 07:25 [email or web address] respirations Mental status Awake,Calm 02/11/25 07:25 [email or web address] nausea No 02/11/25 07:25 [email or web address] Vomiting No 02/11/25 07:25 [email or web address] Anesthesia Postop Eval I: Fluid Summary Crystalloid volume administer 400 02/11/25 07:25 [email or web address] (ml) Colloids volume administered ( ml) Blood Product volume administered (ml) Total IV fluid infused 400 02/11/25 07:25 [email or web address] Anesthesia Postop Eval I: Summary Notes Anesthesia Complication No 02/11/25 07:25 [email or web address] Anesthesia Complication Comment: Post-operative progress note Anesthesia: Postop Eval II Evaluation Mental status: Awake and Calm Pain Level: 0 nausea: No Vomiting: No Complications Anesthesia Complication: No
== END 2025-02-11 07:52 | disposition home or self-care (01) ==
LOC: EN 05:57 → AC 06:01
PROVIDERS: PCP Family Medicine; Referring Provider Family Medicine; Visit Provider Internal Medicine Gastroenterology
PROC: 0DJ08ZZ Inspection of Upper Intestinal Tract, Via Natural or Artificial Opening Endoscopic (ICD-10-PCS; CPT 43235; principal; 2025-02-11 06:55)
DX: K21.00 Gastro-esophageal reflux disease with esophagitis, without bleeding (principal); R13.10 Dysphagia, unspecified; K44.9 Diaphragmatic hernia without obstruction or gangrene; E07.9 Disorder of thyroid, unspecified; Z79.890 Hormone replacement therapy; Z79.899 Other long term (current) drug therapy
CPT/HCPCS: 43239; 43248; 88305; 88312; C1769; J2405